=== PATIENT | male | born 1950 | race Caucasian/White ===

== ENCOUNTER 2016-11-23 00:17 | Emergency (ER) | payer OTHER ==
[~2016-11-23] VITALS: Wt 85.7 kg
--- NOTE | ~2016-11-23 | EKG ---
[place], [place] ELECTROCARDIOGRAM REPORT NAME: BOB RUSSELL UNIT #: [id number] ROOM: DOCTOR: MADISON HART [facility],DARLEEN BIRTHDATE: [birth year] DOS: 11/23/2016 CONCLUSION: 1. Sinus tachycardia. 2. Borderline septal infarction. 3. Left anterior hemiblock and nonspecific ST changes. DARLEEN WALLACE MD CM:EKGRPT:ELECTROCARDIOGRAM REPORT [id number] DARLEEN WALLACE MD [facility]
[~2016-11-23 00:17] MED LIST: ASPIR 8181 MG PO; ASPIRIN81 M1 PO; BACTRIM DS 8001 TA1 PO; BLOOD PRESSURE PO; CIPRO500 MG PO; DARVOCET N 1001 TAB PO; DAYPRO600 M1 PO; IBU-8800 MG PO; KEFLEX500 MG PO; KENALOG0.5% TP; LEVOTHYROXIN0.025 MG PO; LEVOTHYROXINE0.1 MG PO; LISINOPRIL10 M1 PO; LISINOPRIL20 MG PO; LOPRESSOR; LOPRESSOR50 M1 PO; LOVASTATIN20 MG PO; METFORMIN1000 MG PO; METFORMIN750 MG PO; METOPROLOL SR50 MG PO; MULTIVITAMIN PO; PLAVIX75 MG PO; PREDNICOT20 MG PO; SEPTRA DS 800 M1 TAB PO; VIBRAMYCIN100 MG PO; [UNRECOGNIZED DRUG - REMARK]
[2016-11-23] MEDS ORDERED: CLOPIDOGREL75 MG PO (00:21)
[2016-11-23] MEDS ORDERED: LEVOTHYROXINE0.05 MG PO (00:22)
[2016-11-23] MEDS ORDERED: CARVEDILOL12.5 MG PO (00:24)
[2016-11-23] MEDS ORDERED: ALDACTONE25 M1 PO (00:24)
[2016-11-23] MEDS ORDERED: ARMOUR THYROID60 MG PO (00:25)
[2016-11-23] MEDS ORDERED: AMARYL2 MG PO (00:25)
[2016-11-23 01:09] LABS: BASO % 0.8 % (0.0-1.0); HEMATOCRIT 29.8 % (42.0-52.0); HEMOGLOBIN 11.1 g/dl (14.0-18.0); LYMPH # 0.4 10*3/uL (1.3-4.4); LYMPH % 16.8 % (27.0-41.0); MEAN CELL VOLUME 89.8 fl (80.0-94.0); MEAN CORPUSCULAR HGB 33.4 pg (27.0-31.0); MEAN PLATELET VOLUME 9.9 fl (9.6-12.3); MONO # 0.3 10*3/uL (0.1-1.0); MONO % 12.8 % (3.0-9.0); NEUT # 1.7 10*3/uL (2.3-7.9); NEUT % 69.2 % (47.0-73.0); PLATELET COUNT AUTOMATED 135 10*3/uL (130-400); RED BLOOD COUNT 3.32 10*6/uL (4.50-5.90); RED CELL DISTRI WIDTH 13.1 % (0-14.5); WHITE BLOOD COUNT 2.5 10*3/uL (4.8-10.8)
[2016-11-23 01:23] LABS: POTASSIUM 4.4 mmol/L (3.5-5.1); TROPONIN I 0.017 ng/ml (<0.045)
[2016-11-23 01:26] LABS: MEAN CORPUSCULAR HGB CONC 37.2 g/dl (33.0-37.0)
[2016-11-23 02:52] LABS: BILIRUBIN NEGATIVE (NEGATIVE); BLOOD 1+ (NEGATIVE); CLARITY CLEAR (CLEAR); COLOR YELLOW (YELLOW); GLUCOSE TRACE (NEGATIVE); KETONE NEGATIVE (NEGATIVE); LEUKO ESTERASE NEGATIVE (NEGATIVE); NITRITE NEGATIVE (NEGATIVE); PH 5.5 (5.0-9.0); PROTEIN 1+ (NEGATIVE); SPECIFIC GRAVITY 1.025 (1.005-1.030)
[2016-11-23 02:59] LABS: BACTERIA 2+; EPITHELIAL CELLS 0-2; URINE REFLEX COMMENT YES (NO); WBC 0-2 wbc/hpf (0-5)
== END 2016-11-23 05:17 | disposition home or self-care (01) ==
LOC: ED 00:17
PROVIDERS: Student in an Organized Health Care Education/Training Program
DX: D64.9 Anemia, unspecified (principal); K40.90 Unilateral inguinal hernia, without obstruction or gangrene, not specified as recurrent; I10 Essential (primary) hypertension; E11.9 Type 2 diabetes mellitus without complications; I25.10 Atherosclerotic heart disease of native coronary artery without angina pectoris; I50.9 Heart failure, unspecified; E78.5 Hyperlipidemia, unspecified; I25.2 Old myocardial infarction; Z79.899 Other long term (current) drug therapy

== ENCOUNTER 2016-12-07 17:36 | Emergency (ER) | payer OTHER ==
[~2016-12-07] VITALS: Wt 83.0 kg
[~2016-12-07 17:36] MED LIST changes: +ALDACTONE25 M1 PO; +AMARYL2 MG PO; +ARMOUR THYROID60 MG PO; +CARVEDILOL12.5 MG PO; +CLOPIDOGREL75 MG PO; +LEVOTHYROXINE0.05 MG PO
[2016-12-07 18:09] LABS: BASO % 0.5 % (0.0-1.0); EOS # 0.1 10*3/uL (0.0-0.4); EOS % 1.1 % (1.0-4.0); HEMATOCRIT 28.3 % (42.0-52.0); HEMOGLOBIN 9.8 g/dl (14.0-18.0); LYMPH # 0.5 10*3/uL (1.3-4.4); LYMPH % 8.3 % (27.0-41.0); MEAN CELL VOLUME 92.8 fl (80.0-94.0); MEAN CORPUSCULAR HGB 32.1 pg (27.0-31.0); MEAN CORPUSCULAR HGB CONC 34.6 g/dl (33.0-37.0); MEAN PLATELET VOLUME 9.3 fl (9.6-12.3); MONO # 0.4 10*3/uL (0.1-1.0); MONO % 5.6 % (3.0-9.0); NEUT # 5.4 10*3/uL (2.3-7.9); PLATELET COUNT AUTOMATED 305 10*3/uL (130-400); RED BLOOD COUNT 3.05 10*6/uL (4.50-5.90); RED CELL DISTRI WIDTH 13.1 % (0-14.5); WHITE BLOOD COUNT 6.4 10*3/uL (4.8-10.8)
[2016-12-07 18:24] LABS: ALBUMIN 3.1 gm/dl (3.1-4.5); BILIRUBIN, TOTAL 0.5 mg/dl (0.2-1.0); POTASSIUM 5.6 mmol/L (3.5-5.1); TOTAL PROTEIN 7.4 gm/dL (6.4-8.2)
== END 2016-12-07 19:13 | disposition home or self-care (01) ==
LOC: ED 17:36
PROVIDERS: Registered Nurse
DX: K92.2 Gastrointestinal hemorrhage, unspecified (principal); D64.9 Anemia, unspecified; E87.5 Hyperkalemia; K40.90 Unilateral inguinal hernia, without obstruction or gangrene, not specified as recurrent; R06.02 Shortness of breath; Z79.899 Other long term (current) drug therapy; Z87.891 Personal history of nicotine dependence

== ENCOUNTER → 2016-12-17 | Day surgery (SDC) | payer OTHER ==
[~2016-12-17] MED LIST changes: +CYCLOBENZAPRINE5 M3 PO; +NORCO 5-325 TA1 EACH PO; +Orphenadrine C100 MG PO; +ULTRAM50 MG PO
[2016-12-17 10:08] LABS: BASO % 0.4 % (0.0-1.0); EOS # 0.1 10*3/uL (0.0-0.4); EOS % 2.9 % (1.0-4.0); HEMATOCRIT 29.7 % (42.0-52.0); HEMOGLOBIN 10.1 g/dl (14.0-18.0); LYMPH # 0.6 10*3/uL (1.3-4.4); LYMPH % 12.6 % (27.0-41.0); MEAN CELL VOLUME 93.7 fl (80.0-94.0); MEAN CORPUSCULAR HGB 31.9 pg (27.0-31.0); MEAN PLATELET VOLUME 9.6 fl (9.6-12.3); MONO # 0.2 10*3/uL (0.1-1.0); MONO % 5.3 % (3.0-9.0); NEUT # 3.5 10*3/uL (2.3-7.9); NEUT % 77.9 % (47.0-73.0); PLATELET COUNT AUTOMATED 291 10*3/uL (130-400); RED BLOOD COUNT 3.17 10*6/uL (4.50-5.90); RED CELL DISTRI WIDTH 14.1 % (0-14.5); WHITE BLOOD COUNT 4.5 10*3/uL (4.8-10.8)
[2016-12-17 10:09] LABS: BILIRUBIN NEGATIVE (NEGATIVE); BLOOD NEGATIVE (NEGATIVE); CLARITY CLEAR (CLEAR); COLOR YELLOW (YELLOW); GLUCOSE NEGATIVE (NEGATIVE); KETONE NEGATIVE (NEGATIVE); LEUKO ESTERASE NEGATIVE (NEGATIVE); NITRITE NEGATIVE (NEGATIVE); PROTEIN 1+ (NEGATIVE)
[2016-12-17 10:36] LABS: POTASSIUM 4.9 mmol/L (3.5-5.1)
[2016-12-17 10:37] LABS: PROTHROMBIN TIME 10.7 SECONDS (9.0-12.4)
[2016-12-17 10:53] LABS: EPITHELIAL CELLS 0-2
[2016-12-21 10:06] VITALS: BP 170/83
[2016-12-21 10:53] VITALS: BP 115/74
[2016-12-21 11:07] VITALS: BP 120/76
[2016-12-21 11:23] VITALS: BP 130/82
== END | disposition home or self-care (01) ==
LOC: CANPRESDC → SDC 08:00
PROVIDERS: Surgery
DX: K29.50 Unspecified chronic gastritis without bleeding (principal); K44.9 Diaphragmatic hernia without obstruction or gangrene; K92.2 Gastrointestinal hemorrhage, unspecified; Z79.899 Other long term (current) drug therapy; Z79.84 Long term (current) use of oral hypoglycemic drugs; E11.9 Type 2 diabetes mellitus without complications; E03.9 Hypothyroidism, unspecified; I25.2 Old myocardial infarction; Z95.9 Presence of cardiac and vascular implant and graft, unspecified; Z82.49 Family history of ischemic heart disease and other diseases of the circulatory system; Z80.42 Family history of malignant neoplasm of prostate; Z79.82 Long term (current) use of aspirin; I11.0 Hypertensive heart disease with heart failure; I50.9 Heart failure, unspecified; E78.00 Pure hypercholesterolemia, unspecified; Z87.891 Personal history of nicotine dependence

== ENCOUNTER 2016-12-26 03:43 | Inpatient (IN) | payer OTHER ==
[~2016-12-26] VITALS: Ht 175.2 cm; Wt 83.2 kg
[~2016-12-26 03:43] MED LIST changes: -CYCLOBENZAPRINE5 M3 PO; -NORCO 5-325 TA1 EACH PO; -Orphenadrine C100 MG PO; -ULTRAM50 MG PO
[2016-12-26 03:46] VITALS: BP 160/95
[2016-12-26 04:23] LABS: BASO % 0.7 % (0.0-1.0); EOS # 0.1 10*3/uL (0.0-0.4); EOS % 3.2 % (1.0-4.0); HEMATOCRIT 26.5 % (42.0-52.0); HEMOGLOBIN 9.1 g/dl (14.0-18.0); LYMPH # 0.7 10*3/uL (1.3-4.4); MEAN CELL VOLUME 93.3 fl (80.0-94.0); MEAN CORPUSCULAR HGB CONC 34.3 g/dl (33.0-37.0); MONO # 0.3 10*3/uL (0.1-1.0); MONO % 8.3 % (3.0-9.0); NEUT # 2.9 10*3/uL (2.3-7.9); NEUT % 69.3 % (47.0-73.0); PLATELET COUNT AUTOMATED 230 10*3/uL (130-400); RED BLOOD COUNT 2.84 10*6/uL (4.50-5.90); RED CELL DISTRI WIDTH 14.9 % (0-14.5); WHITE BLOOD COUNT 4.1 10*3/uL (4.8-10.8)
[2016-12-26 04:27] LABS: BILIRUBIN NEGATIVE (NEGATIVE); BLOOD NEGATIVE (NEGATIVE); CLARITY CLEAR (CLEAR); COLOR YELLOW (YELLOW); GLUCOSE NEGATIVE (NEGATIVE); KETONE NEGATIVE (NEGATIVE); LEUKO ESTERASE NEGATIVE (NEGATIVE); NITRITE NEGATIVE (NEGATIVE); PROTEIN NEGATIVE (NEGATIVE); UROBILINOGEN 0.2 E.U./dl (0.2-1.0)
[2016-12-26 04:42] LABS: ALBUMIN 3.1 gm/dl (3.1-4.5); ALKALINE PHOSPHATASE 56 U/L (45-117); BILIRUBIN, DIRECT < 0.1 mg/dL (0.0-0.2); BILIRUBIN, TOTAL 0.3 mg/dl (0.2-1.0); BUN 23 mg/dl (7-24); CARBON DIOXIDE 24 mmol/L (21-32); CHLORIDE 104 mmol/L (98-107); EST GLOM FILT AFRICAN AMERICAN > 60 ml/min; GLUCOSE 129 mg/dL (65-99); POTASSIUM 4.3 mmol/L (3.5-5.1); SGOT/AST 20 IU/L (3-35); SGPT/ALT 25 U/L (12-78); SODIUM 138 mmol/L (136-145); TOTAL PROTEIN 6.8 gm/dL (6.4-8.2)
[2016-12-26 04:43] LABS: TROPONIN I < 0.015 ng/ml (<0.045)
[2016-12-26 04:45] LABS: BACTERIA TRACE; EPITHELIAL CELLS 0-2; RBC 0-2 rbc/hpf (0-2); URINE REFLEX COMMENT NO (NO); WBC 0-2 wbc/hpf (0-5)
[2016-12-26 05:36] VITALS: BP 153/92
[2016-12-26 06:30] VITALS: BP 148/81
[2016-12-26 08:00] VITALS: BP 155/82
[2016-12-26 12:00] VITALS: BP 136/72
[2016-12-26] MEDS ORDERED: NORCO 5-325 TA1 EACH PO (12:30)
[2016-12-26] MEDS ORDERED: CYCLOBENZAPRINE5 M3 PO (12:30)
== END 2016-12-26 13:59 | disposition home or self-care (01) | DRG 552 ==
LOC: ED 03:43 → EDHOLD 05:55 → 5E 06:09
PROVIDERS: Emergency Medicine
DX: M54.9 Dorsalgia, unspecified (principal); I13.0 Hypertensive heart and chronic kidney disease with heart failure and stage 1 through stage 4 chronic kidney disease, or unspecified chronic kidney disease; E11.22 Type 2 diabetes mellitus with diabetic chronic kidney disease; R65.10 Systemic inflammatory response syndrome (SIRS) of non-infectious origin without acute organ dysfunction; I50.22 Chronic systolic (congestive) heart failure; I25.10 Atherosclerotic heart disease of native coronary artery without angina pectoris; I25.2 Old myocardial infarction; L40.9 Psoriasis, unspecified; Z95.5 Presence of coronary angioplasty implant and graft; Z82.49 Family history of ischemic heart disease and other diseases of the circulatory system; Z83.3 Family history of diabetes mellitus; N18.3 Chronic kidney disease, stage 3 (moderate); Z87.891 Personal history of nicotine dependence; D72.810 Lymphocytopenia; E11.65 Type 2 diabetes mellitus with hyperglycemia; E78.2 Mixed hyperlipidemia; K57.30 Diverticulosis of large intestine without perforation or abscess without bleeding; Z79.84 Long term (current) use of oral hypoglycemic drugs; Z79.899 Other long term (current) drug therapy; D63.1 Anemia in chronic kidney disease

== ENCOUNTER 2016-12-31 04:36 | Emergency (ER) | payer OTHER ==
[~2016-12-31] VITALS: Ht 175.2 cm; Wt 83.0 kg
[~2016-12-31 04:36] MED LIST changes: +CYCLOBENZAPRINE5 M3 PO; +NORCO 5-325 TA1 EACH PO
[2016-12-31 05:32] LABS: BASO % 0.7 % (0.0-1.0); EOS # 0.1 10*3/uL (0.0-0.4); EOS % 2.4 % (1.0-4.0); HEMATOCRIT 28.7 % (42.0-52.0); LYMPH # 0.5 10*3/uL (1.3-4.4); LYMPH % 11.8 % (27.0-41.0); MEAN CORPUSCULAR HGB 32.1 pg (27.0-31.0); MEAN CORPUSCULAR HGB CONC 34.8 g/dl (33.0-37.0); MEAN PLATELET VOLUME 9.2 fl (9.6-12.3); MONO # 0.4 10*3/uL (0.1-1.0); MONO % 8.4 % (3.0-9.0); NEUT # 3.2 10*3/uL (2.3-7.9); NEUT % 76.2 % (47.0-73.0); PLATELET COUNT AUTOMATED 235 10*3/uL (130-400); RED BLOOD COUNT 3.12 10*6/uL (4.50-5.90); RED CELL DISTRI WIDTH 14.8 % (0-14.5); WHITE BLOOD COUNT 4.2 10*3/uL (4.8-10.8)
[2016-12-31 05:54] LABS: ALBUMIN 3.4 gm/dl (3.1-4.5); ALKALINE PHOSPHATASE 66 U/L (45-117); BILIRUBIN, TOTAL 0.4 mg/dl (0.2-1.0); BUN 22 mg/dl (7-24); C-REACTIVE PROTEIN 1.65 MG/DL (0-0.3); CARBON DIOXIDE 26 mmol/L (21-32); CHLORIDE 99 mmol/L (98-107); EST GLOM FILT AFRICAN AMERICAN 59 ml/min; GLUCOSE 186 mg/dL (65-99); MAGNESIUM 1.6 mg/dL (1.5-2.1); POTASSIUM 4.5 mmol/L (3.5-5.1); SGOT/AST 14 IU/L (3-35); SGPT/ALT 22 U/L (12-78); SODIUM 134 mmol/L (136-145); TOTAL PROTEIN 7.1 gm/dL (6.4-8.2); TROPONIN I < 0.015 ng/ml (<0.045)
[2016-12-31 06:51] LABS: BILIRUBIN NEGATIVE (NEGATIVE); BLOOD NEGATIVE (NEGATIVE); CLARITY CLEAR (CLEAR); COLOR YELLOW (YELLOW); GLUCOSE NEGATIVE (NEGATIVE); KETONE NEGATIVE (NEGATIVE); LEUKO ESTERASE NEGATIVE (NEGATIVE); NITRITE NEGATIVE (NEGATIVE); PROTEIN NEGATIVE (NEGATIVE); SPECIFIC GRAVITY <= 1.005 (1.005-1.030); UROBILINOGEN 0.2 E.U./dl (0.2-1.0)
[2016-12-31] MEDS ORDERED: Orphenadrine C100 MG PO (06:55)
[2016-12-31] MEDS ORDERED: ULTRAM50 MG PO (06:55)
[2016-12-31 06:58] LABS: URINE REFLEX COMMENT NO (NO)
== END 2016-12-31 07:51 | disposition home or self-care (01) ==
LOC: ED 04:36
PROVIDERS: Emergency Medicine Emergency Medical Services
DX: M54.16 Radiculopathy, lumbar region (principal); M51.86 Other intervertebral disc disorders, lumbar region; I25.10 Atherosclerotic heart disease of native coronary artery without angina pectoris; E11.22 Type 2 diabetes mellitus with diabetic chronic kidney disease; I13.0 Hypertensive heart and chronic kidney disease with heart failure and stage 1 through stage 4 chronic kidney disease, or unspecified chronic kidney disease; N18.3 Chronic kidney disease, stage 3 (moderate); I25.2 Old myocardial infarction; E78.5 Hyperlipidemia, unspecified; Z87.891 Personal history of nicotine dependence; Z79.899 Other long term (current) drug therapy

== ENCOUNTER → 2017-02-11 | Outpatient (CLI) | payer OTHER ==
[~2017-02-11] MED LIST changes: +Orphenadrine C100 MG PO; +ULTRAM50 MG PO
[2017-02-11 09:04] LABS: BASO # 0.1 10*3/uL (0.0-0.1); BASO % 0.9 % (0.0-1.0); EOS # 0.2 10*3/uL (0.0-0.4); EOS % 3.1 % (1.0-4.0); HEMATOCRIT 32.7 % (42.0-52.0); HEMOGLOBIN 11.8 g/dl (14.0-18.0); LYMPH # 0.8 10*3/uL (1.3-4.4); LYMPH % 13.5 % (27.0-41.0); MEAN CELL VOLUME 89.8 fl (80.0-94.0); MEAN CORPUSCULAR HGB 32.4 pg (27.0-31.0); MEAN CORPUSCULAR HGB CONC 36.1 g/dl (33.0-37.0); MEAN PLATELET VOLUME 9.7 fl (9.6-12.3); MONO # 0.4 10*3/uL (0.1-1.0); MONO % 6.1 % (3.0-9.0); NEUT # 4.4 10*3/uL (2.3-7.9); NEUT % 75.9 % (47.0-73.0); PLATELET COUNT AUTOMATED 215 10*3/uL (130-400); RED BLOOD COUNT 3.64 10*6/uL (4.50-5.90); RED CELL DISTRI WIDTH 13.7 % (0-14.5); WHITE BLOOD COUNT 5.8 10*3/uL (4.8-10.8)
== END | disposition home or self-care (01) ==
LOC: LAB 08:39
PROVIDERS: Family Medicine
DX: D64.9 Anemia, unspecified (principal)

== ENCOUNTER 2017-02-21 23:18 | Inpatient (IN) | payer OTHER ==
[~2017-02-21] VITALS: Ht 175.2 cm; Wt 75.6 kg
[2017-02-21 23:18] VITALS: BP 136/82
[2017-02-21 23:43] LABS: BASO % 0.6 % (0.0-1.0); EOS # 0.2 10*3/uL (0.0-0.4); EOS % 3.3 % (1.0-4.0); HEMOGLOBIN 11.5 g/dl (14.0-18.0); LYMPH # 0.8 10*3/uL (1.3-4.4); LYMPH % 14.7 % (27.0-41.0); MEAN CELL VOLUME 89.9 fl (80.0-94.0); MEAN CORPUSCULAR HGB 32.3 pg (27.0-31.0); MEAN CORPUSCULAR HGB CONC 35.9 g/dl (33.0-37.0); MEAN PLATELET VOLUME 9.9 fl (9.6-12.3); MONO # 0.3 10*3/uL (0.1-1.0); MONO % 5.5 % (3.0-9.0); NEUT # 3.9 10*3/uL (2.3-7.9); NEUT % 75.7 % (47.0-73.0); PLATELET COUNT AUTOMATED 214 10*3/uL (130-400); RED BLOOD COUNT 3.56 10*6/uL (4.50-5.90); WHITE BLOOD COUNT 5.1 10*3/uL (4.8-10.8)
[2017-02-21 23:50] LABS: BILIRUBIN NEGATIVE (NEGATIVE); BLOOD NEGATIVE (NEGATIVE); CLARITY CLEAR (CLEAR); COLOR YELLOW (YELLOW); GLUCOSE 2+ (NEGATIVE); KETONE NEGATIVE (NEGATIVE); LEUKO ESTERASE NEGATIVE (NEGATIVE); NITRITE NEGATIVE (NEGATIVE); SPECIFIC GRAVITY <= 1.005 (1.005-1.030)
[2017-02-21 23:58] LABS: ALBUMIN 3.6 gm/dl (3.1-4.5); ALKALINE PHOSPHATASE 78 U/L (45-117); BUN 20 mg/dl (7-24); CHLORIDE 99 mmol/L (98-107); CREATININE 1.18 mg/dL (0.70-1.30); SGOT/AST 11 IU/L (3-35); SGPT/ALT 14 U/L (12-78); SODIUM 131 mmol/L (136-145); TOTAL PROTEIN 7.5 gm/dL (6.4-8.2)
[2017-02-22] VITALS (7 sets, daily range): BP systolic 133–157; BP diastolic 76–87
[2017-02-22 00:05] LABS: WBC 0-2 wbc/hpf (0-5)
--- NOTE | 2017-02-22 01:30 | NUR ---
A 66, admitted to 5E, under the services of KATHLEEN Thomason DO with a diagnosis of ABDOMINAL PAIN/ABDOMINAL MASS. Chief complaint is ABDOMINAL PAIN. Patient arrived via ambulatory from ER. Monitor applied. Initial assessment completed. Vital signs taken and recorded. KATHLEEN THOMASON DO notified of admission to the unit. Orders received. See assessment for past medical history, medications and allergies. Patient and/or family oriented to unit. visitation policy reviewed. Clothing/patient valuable form completed. AMANUEL WYNN L
--- NOTE | 2017-02-22 03:58 | NUR ---
PT RESTING IN BED WITH EYES CLOSED RESPS EASY AND NONLABORED AT THIS TIME, CALL LIGHT WITH IN REACH
[2017-02-22 06:06] LABS: FREE T4 1.41 ng/dl (0.76-1.46)
[2017-02-22 06:10] LABS: THYROID STIM HORMONE (HS) 0.092 uIU/ml (0.358-4.75)
[2017-02-22 06:19] LABS: BASO % 0.8 % (0.0-1.0); EOS # 0.2 10*3/uL (0.0-0.4); EOS % 3.8 % (1.0-4.0); HEMATOCRIT 29.3 % (42.0-52.0); HEMOGLOBIN 10.2 g/dl (14.0-18.0); LYMPH # 0.7 10*3/uL (1.3-4.4); LYMPH % 18.5 % (27.0-41.0); MEAN CELL VOLUME 89.9 fl (80.0-94.0); MEAN CORPUSCULAR HGB 31.3 pg (27.0-31.0); MEAN CORPUSCULAR HGB CONC 34.8 g/dl (33.0-37.0); MEAN PLATELET VOLUME 10.4 fl (9.6-12.3); MONO # 0.2 10*3/uL (0.1-1.0); MONO % 5.3 % (3.0-9.0); NEUT # 2.8 10*3/uL (2.3-7.9); NEUT % 71.1 % (47.0-73.0); PLATELET COUNT AUTOMATED 194 10*3/uL (130-400); RED BLOOD COUNT 3.26 10*6/uL (4.50-5.90); RED CELL DISTRI WIDTH 14.1 % (0-14.5); WHITE BLOOD COUNT 3.9 10*3/uL (4.8-10.8)
[2017-02-22 06:28] LABS: ACT PARTIAL THROMBO TIME 22.9 SECONDS (20.8-31.5); INTERNATIONAL NORM RATIO 1.1 (2.0-3.5)
--- NOTE | 2017-02-22 09:00 | NUR ---
Medical Record Retrieval Specialist in to talk to patient. Patient states lives at home with and family. There are few steps in the home. Physician: atiya steiner Pharmacy: [facility] [place] [facility]: none Patient's level of ADLs: INDEPENDENT Patient has working utilities: all working DME: none Follow-up physician's appointment after d/c: will be made by hospitalist nurse director upon discharge Does patient want to access PORTAL?: no Discharge plan discussed with patient, patient lives at home with and family, he states he is independent in adls and ambulation, drives, patient states he will be going back home and denies any home needs. PRASHANTH LEZAMA
[2017-02-22] MEDS ORDERED: COREG12.5 M1 PO (11:04)
[2017-02-22] MEDS ORDERED: ASPIRIN CHEWABL81 MG PO (11:05)
--- NOTE | 2017-02-22 19:48 | NUR ---
DR. RIZZO CALLED AND NOTIFIED OF PATIENT CONSULT. THE STATED HE WOULD BE IN THE MORNING TO SEE THE PATIENT. HE ALSO ASKED IF THE PATIENT WAS ON ANY BLOOD THINNERS AND IF HE HAD A DIET. I STATED THE PATIENT IS ON PLAVIX FOR STENT HX X3 AND THAT HE IS ON A 1800 SOM DIET. THE STATED HE WAS GOING TO LOOK AT THE PATIENT HX AND DECIDE IF ANYTHING IS NEEDED NOW. NO OTHER CONCERNS FROM THE .
[2017-02-23] VITALS: BP 107/91; BP 140/83
[2017-02-23 04:00] VITALS: BP 107/91
[2017-02-23 07:15] LABS: BASO % 0.7 % (0.0-1.0); EOS # 0.2 10*3/uL (0.0-0.4); EOS % 3.1 % (1.0-4.0); HEMOGLOBIN 10.7 g/dl (14.0-18.0); LYMPH # 0.6 10*3/uL (1.3-4.4); LYMPH % 9.8 % (27.0-41.0); MEAN CORPUSCULAR HGB 31.8 pg (27.0-31.0); MEAN CORPUSCULAR HGB CONC 35.7 g/dl (33.0-37.0); MEAN PLATELET VOLUME 10.3 fl (9.6-12.3); MONO # 0.3 10*3/uL (0.1-1.0); MONO % 5.3 % (3.0-9.0); NEUT # 4.7 10*3/uL (2.3-7.9); NEUT % 80.8 % (47.0-73.0); PLATELET COUNT AUTOMATED 199 10*3/uL (130-400); RED BLOOD COUNT 3.37 10*6/uL (4.50-5.90); WHITE BLOOD COUNT 5.8 10*3/uL (4.8-10.8)
[2017-02-23 07:53] LABS: ALBUMIN 3.4 gm/dl (3.1-4.5); ALKALINE PHOSPHATASE 72 U/L (45-117); BUN 25 mg/dl (7-24); CHLORIDE 97 mmol/L (98-107); CREATININE 1.23 mg/dL (0.70-1.30); MAGNESIUM 1.5 mg/dL (1.5-2.1); PHOSPHOROUS 3.4 mg/dL (2.5-4.9); POTASSIUM 4.1 mmol/L (3.5-5.1); SGOT/AST 12 IU/L (3-35); SGPT/ALT 15 U/L (12-78); SODIUM 131 mmol/L (136-145); TOTAL PROTEIN 7.1 gm/dL (6.4-8.2)
[2017-02-23 08:00] VITALS: BP 152/98
--- NOTE | 2017-02-23 08:55 | NUR ---
DR. RIZZO CLEARED THE PATIENT FOR DISCHARGE.
--- NOTE | 2017-02-23 09:00 | NUR ---
case management visits with patient, patient denies any home needs
--- NOTE | 2017-02-23 11:53 | NUR ---
Discharge instructions reviewed with patient/family. Patient receptive and verbalizes understanding. Follow-up care arranged. Written instructions given to patient/family. MACIE AGUILAR
== END 2017-02-23 11:53 | disposition home or self-care (01) | DRG 394 ==
LOC: ED 23:18 → EDHOLD 02-22 00:54 → 5E 02-22 00:54
PROVIDERS: Hospitalist; Internal Medicine; Student in an Organized Health Care Education/Training Program; ADMIT Internal Medicine
DX: K66.1 Hemoperitoneum (principal); I13.0 Hypertensive heart and chronic kidney disease with heart failure and stage 1 through stage 4 chronic kidney disease, or unspecified chronic kidney disease; I50.42 Chronic combined systolic (congestive) and diastolic (congestive) heart failure; E11.22 Type 2 diabetes mellitus with diabetic chronic kidney disease; E87.1 Hypo-osmolality and hyponatremia; R19.03 Right lower quadrant abdominal swelling, mass and lump; E78.2 Mixed hyperlipidemia; E11.65 Type 2 diabetes mellitus with hyperglycemia; I25.10 Atherosclerotic heart disease of native coronary artery without angina pectoris; N18.3 Chronic kidney disease, stage 3 (moderate); D63.1 Anemia in chronic kidney disease; E03.9 Hypothyroidism, unspecified; D72.810 Lymphocytopenia; R63.4 Abnormal weight loss; E55.9 Vitamin D deficiency, unspecified; K57.90 Diverticulosis of intestine, part unspecified, without perforation or abscess without bleeding; L40.9 Psoriasis, unspecified; I25.2 Old myocardial infarction; Z98.61 Coronary angioplasty status; Z87.891 Personal history of nicotine dependence; Z82.49 Family history of ischemic heart disease and other diseases of the circulatory system; Z83.3 Family history of diabetes mellitus; Z79.82 Long term (current) use of aspirin; Z79.84 Long term (current) use of oral hypoglycemic drugs; Z79.899 Other long term (current) drug therapy

== ENCOUNTER → 2017-03-18 | Outpatient (CLI) | payer OTHER ==
[~2017-03-18] MED LIST changes: +ASPIRIN CHEWABL81 MG PO; +COREG12.5 M1 PO
[2017-03-18 08:15] LABS: BASO % 0.9 % (0.0-1.0); EOS # 0.2 10*3/uL (0.0-0.4); EOS % 4.4 % (1.0-4.0); HEMATOCRIT 30.7 % (42.0-52.0); HEMOGLOBIN 10.7 g/dl (14.0-18.0); LYMPH # 0.7 10*3/uL (1.3-4.4); LYMPH % 16.2 % (27.0-41.0); MEAN CELL VOLUME 91.1 fl (80.0-94.0); MEAN CORPUSCULAR HGB 31.8 pg (27.0-31.0); MEAN CORPUSCULAR HGB CONC 34.9 g/dl (33.0-37.0); MEAN PLATELET VOLUME 9.1 fl (9.6-12.3); MONO # 0.3 10*3/uL (0.1-1.0); NEUT # 3.1 10*3/uL (2.3-7.9); PLATELET COUNT AUTOMATED 226 10*3/uL (130-400); RED BLOOD COUNT 3.37 10*6/uL (4.50-5.90); RED CELL DISTRI WIDTH 13.9 % (0-14.5); WHITE BLOOD COUNT 4.3 10*3/uL (4.8-10.8)
[2017-03-18 08:45] LABS: ALBUMIN 3.4 gm/dl (3.1-4.5); ALKALINE PHOSPHATASE 75 U/L (45-117); BILIRUBIN, DIRECT < 0.1 mg/dL (0.0-0.2); BUN 18 mg/dl (7-24); CHLORIDE 102 mmol/L (98-107); CREATININE 1.29 mg/dL (0.70-1.30); POTASSIUM 4.7 mmol/L (3.5-5.1); SGOT/AST 13 IU/L (3-35); SGPT/ALT 17 U/L (12-78); SODIUM 137 mmol/L (136-145); TOTAL PROTEIN 7.5 gm/dL (6.4-8.2)
== END | disposition home or self-care (01) ==
LOC: LAB 07:58
PROVIDERS: Family Medicine
DX: D64.9 Anemia, unspecified (principal); N28.9 Disorder of kidney and ureter, unspecified

== ENCOUNTER → 2017-04-13 | Outpatient (CLI) | payer OTHER ==
[2017-04-13 12:56] LABS: BASO % 0.9 % (0.0-1.0); EOS # 0.1 10*3/uL (0.0-0.4); EOS % 3.1 % (1.0-4.0); HEMOGLOBIN 11.2 g/dl (14.0-18.0); LYMPH # 0.9 10*3/uL (1.3-4.4); LYMPH % 20.3 % (27.0-41.0); MEAN CELL VOLUME 90.1 fl (80.0-94.0); MEAN CORPUSCULAR HGB 31.5 pg (27.0-31.0); MEAN PLATELET VOLUME 9.4 fl (9.6-12.3); MONO # 0.3 10*3/uL (0.1-1.0); MONO % 6.4 % (3.0-9.0); NEUT # 2.9 10*3/uL (2.3-7.9); NEUT % 68.6 % (47.0-73.0); PLATELET COUNT AUTOMATED 263 10*3/uL (130-400); RED BLOOD COUNT 3.55 10*6/uL (4.50-5.90); WHITE BLOOD COUNT 4.2 10*3/uL (4.8-10.8)
[2017-04-13 13:05] LABS: BUN 23 mg/dl (7-24); CHLORIDE 104 mmol/L (98-107); CREATININE 1.28 mg/dL (0.70-1.30); SODIUM 136 mmol/L (136-145)
== END | disposition home or self-care (01) ==
LOC: LAB 12:11
PROVIDERS: Family Medicine
DX: E11.9 Type 2 diabetes mellitus without complications (principal); D64.9 Anemia, unspecified; N28.9 Disorder of kidney and ureter, unspecified

== ENCOUNTER → 2017-05-04 | Outpatient (CLI) | payer OTHER ==
[2017-05-04 09:24] LABS: BASO % 0.7 % (0.0-1.0); EOS # 0.1 10*3/uL (0.0-0.4); EOS % 2.9 % (1.0-4.0); HEMATOCRIT 31.5 % (42.0-52.0); LYMPH # 0.8 10*3/uL (1.3-4.4); LYMPH % 16.9 % (27.0-41.0); MEAN CELL VOLUME 93.2 fl (80.0-94.0); MEAN CORPUSCULAR HGB 32.5 pg (27.0-31.0); MEAN CORPUSCULAR HGB CONC 34.9 g/dl (33.0-37.0); MEAN PLATELET VOLUME 9.8 fl (9.6-12.3); MONO # 0.4 10*3/uL (0.1-1.0); MONO % 9.9 % (3.0-9.0); NEUT # 3.1 10*3/uL (2.3-7.9); NEUT % 69.1 % (47.0-73.0); PLATELET COUNT AUTOMATED 220 10*3/uL (130-400); RED BLOOD COUNT 3.38 10*6/uL (4.50-5.90); WHITE BLOOD COUNT 4.4 10*3/uL (4.8-10.8)
== END | disposition home or self-care (01) ==
LOC: LAB 08:34
PROVIDERS: Family Medicine
DX: D64.9 Anemia, unspecified (principal)

== ENCOUNTER → 2017-08-10 | Outpatient (CLI) | payer OTHER | END | disposition home or self-care (01) | LOC: RAD 13:15 | DX: M25.561 Pain in right knee (principal) ==

== ENCOUNTER → 2017-09-16 | Outpatient (CLI) | payer OTHER ==
[2017-09-16 10:46] LABS: BASO # 0.1 10*3/uL (0.0-0.1); BASO % 1.1 % (0.0-1.0); EOS # 0.2 10*3/uL (0.0-0.4); EOS % 3.9 % (1.0-4.0); HEMATOCRIT 33.1 % (42.0-52.0); HEMOGLOBIN 11.5 g/dl (14.0-18.0); LYMPH # 0.8 10*3/uL (1.3-4.4); LYMPH % 16.3 % (27.0-41.0); MEAN CELL VOLUME 93.5 fl (80.0-94.0); MEAN CORPUSCULAR HGB 32.5 pg (27.0-31.0); MEAN CORPUSCULAR HGB CONC 34.7 g/dl (33.0-37.0); MEAN PLATELET VOLUME 9.4 fl (9.6-12.3); MONO # 0.4 10*3/uL (0.1-1.0); MONO % 8.2 % (3.0-9.0); NEUT # 3.2 10*3/uL (2.3-7.9); NEUT % 69.8 % (47.0-73.0); PLATELET COUNT AUTOMATED 197 10*3/uL (130-400); RED BLOOD COUNT 3.54 10*6/uL (4.50-5.90); RED CELL DISTRI WIDTH 14.6 % (0-14.5); WHITE BLOOD COUNT 4.6 10*3/uL (4.8-10.8)
[2017-09-16 11:13] LABS: ALBUMIN 3.8 gm/dl (3.1-4.5); ALKALINE PHOSPHATASE 67 U/L (45-117); BILIRUBIN, DIRECT 0.1 mg/dL (0.0-0.2); BUN 25 mg/dl (7-24); CHLORIDE 104 mmol/L (98-107); POTASSIUM 5.1 mmol/L (3.5-5.1); SGOT/AST 17 IU/L (3-35); SGPT/ALT 25 U/L (12-78); SODIUM 137 mmol/L (136-145); TOTAL PROTEIN 7.5 gm/dL (6.4-8.2)
== END | disposition home or self-care (01) ==
LOC: LAB 10:22
PROVIDERS: Family Medicine
DX: I10 Essential (primary) hypertension (principal); E11.9 Type 2 diabetes mellitus without complications

== ENCOUNTER → 2017-10-05 | Outpatient (CLI) | payer OTHER | END | disposition home or self-care (01) | LOC: CARD 15:26 | DX: I25.5 Ischemic cardiomyopathy (principal) ==

== ENCOUNTER 2017-11-01 17:42 | Emergency (ER) | payer OTHER ==
[~2017-11-01] VITALS: Ht 175.2 cm; Wt 77.6 kg
[2017-11-01 18:17] LABS: BASO % 0.5 % (0.0-1.0); EOS # 0.1 10*3/uL (0.0-0.4); EOS % 1.5 % (1.0-4.0); HEMATOCRIT 32.5 % (42.0-52.0); HEMOGLOBIN 11.1 g/dl (14.0-18.0); LYMPH # 0.7 10*3/uL (1.3-4.4); LYMPH % 11.3 % (27.0-41.0); MEAN CELL VOLUME 91.5 fl (80.0-94.0); MEAN CORPUSCULAR HGB 31.3 pg (27.0-31.0); MEAN CORPUSCULAR HGB CONC 34.2 g/dl (33.0-37.0); MEAN PLATELET VOLUME 9.3 fl (9.6-12.3); MONO # 0.5 10*3/uL (0.1-1.0); MONO % 7.6 % (3.0-9.0); NEUT # 4.8 10*3/uL (2.3-7.9); NEUT % 78.8 % (47.0-73.0); PLATELET COUNT AUTOMATED 327 10*3/uL (130-400); RED BLOOD COUNT 3.55 10*6/uL (4.50-5.90); RED CELL DISTRI WIDTH 12.7 % (0-14.5)
[2017-11-01 18:29] LABS: ACT PARTIAL THROMBO TIME 25.9 SECONDS (20.8-31.5)
[2017-11-01 18:33] LABS: ALBUMIN 3.4 gm/dl (3.1-4.5); CREATININE 1.55 mg/dL (0.70-1.30); POTASSIUM 4.6 mmol/L (3.5-5.1); TOTAL PROTEIN 7.7 gm/dL (6.4-8.2)
[2017-11-01 21:56] LABS: BF LYMPHOCYTES 2 %; BF MACROPHAGES 3 %; BF NEUTROPHILS 95 %
[2017-11-01 21:58] LABS: BODY FLUID WBC 49075 /uL
== END 2017-11-01 21:16 | disposition home or self-care (01) ==
LOC: ED 17:42
PROVIDERS: Physician Assistant
DX: M25.461 Effusion, right knee (principal); M17.11 Unilateral primary osteoarthritis, right knee; Z79.82 Long term (current) use of aspirin; Z79.899 Other long term (current) drug therapy; Z87.891 Personal history of nicotine dependence

== ENCOUNTER → 2017-12-01 | Outpatient (CLI) | payer OTHER ==
[~2017-12-01] MED LIST changes: +ALDACTONE25 MG PO; +CARVEDILOL25 MG PO; +COREG25 MG PO; +DOXYCYCLINE MO100 M1 PO; +FUROSEMIDE40 MG PO; +GLUCOPHAGE500 M1 PO; +GLUCOPHAGE500 MG PO; +HYDRALAZINE10 MG PO; +IRON PO; +LATANOPROST2.5 ML OU; +LISINOPRIL5 MG PO; +MULTIZYME PO; +PROVENTIL HFA6.7 GM INH; +Synthroid,Lev100 MCG PO; +VITAMIN D31000 UNI1 PO; +[UNRECOGNIZED DRUG - OTHER] PO
[2017-12-01 11:48] LABS: BASO % 0.7 % (0.0-1.0); EOS # 0.2 10*3/uL (0.0-0.4); EOS % 3.3 % (1.0-4.0); HEMATOCRIT 32.8 % (42.0-52.0); HEMOGLOBIN 10.8 g/dl (14.0-18.0); LYMPH # 0.7 10*3/uL (1.3-4.4); LYMPH % 16.4 % (27.0-41.0); MEAN CELL VOLUME 91.4 fl (80.0-94.0); MEAN CORPUSCULAR HGB 30.1 pg (27.0-31.0); MEAN CORPUSCULAR HGB CONC 32.9 g/dl (33.0-37.0); MEAN PLATELET VOLUME 9.2 fl (9.6-12.3); MONO # 0.2 10*3/uL (0.1-1.0); MONO % 5.3 % (3.0-9.0); NEUT # 3.3 10*3/uL (2.3-7.9); NEUT % 73.9 % (47.0-73.0); PLATELET COUNT AUTOMATED 246 10*3/uL (130-400); RED BLOOD COUNT 3.59 10*6/uL (4.50-5.90); RED CELL DISTRI WIDTH 13.8 % (0-14.5); WHITE BLOOD COUNT 4.5 10*3/uL (4.8-10.8)
[2017-12-02 07:05] LABS: HEPATITIS B SURFACE AG Negative (Negative); HEPATITIS C VIRUS ANTIBODY <0.1 s/co (0.0-0.9)
[2017-12-02 08:08] LABS: RHEUMATOID ARTHRITIS FACTOR <10.0 IU/mL (0.0-13.9)
[2017-12-02 14:05] LABS: ANTI-RNP ANTIBODIES 0.6 AI (0.0-0.9)
[2017-12-03 00:03] LABS: CCP ANTIBODIES IGG/IGA 10 units (0-19); PTT-LA 33.5 sec (0.0-51.9)
[2017-12-03 07:05] LABS: LUPUS REFLEX INTERPRETATION Comment: (.)
[2017-12-06 16:07] LABS: HLA-B27 ANTIGEN Negative (.)
[2017-12-06 18:03] LABS: IGG P18 AB Present (.); IGG P23 AB Present (.); IGG P28 AB Present (.); IGG P30 AB Present (.); IGG P39 AB Present (.); IGG P41 AB Present (.); IGG P45 AB Present (.); IGG P58 AB Present (.); IGG P63 AB Present (.); IGG P66 AB Present (.); IGM P23 AB Present (.); IGM P39 AB Absent (.); IGM P41 AB Present (.); LYME IGG WB INTERPRETATION Positive (.); LYME IGM WB INTERPRETATION Positive (.)
[2017-12-07 07:26] LABS: LYME REFLEX CHARGE CHG
== END | disposition home or self-care (01) ==
LOC: LAB 11:25
PROVIDERS: Orthopaedic Surgery
DX: E78.00 Pure hypercholesterolemia, unspecified (principal); M25.50 Pain in unspecified joint; R53.1 Weakness; R70.0 Elevated erythrocyte sedimentation rate; Z79.899 Other long term (current) drug therapy

== ENCOUNTER 2017-12-14 05:40 | Inpatient (IN) | payer OTHER ==
[~2017-12-14] VITALS: Ht 175.3 cm; Wt 75.3 kg
[2017-12-14] VITALS (7 sets, daily range): BP systolic 120–156; BP diastolic 84–107
--- NOTE | ~2017-12-14 | EKG ---
[place], [place] ELECTROCARDIOGRAM REPORT NAME: BOB RUSSELL UNIT #: [id number] ROOM: 426 DOCTOR: MADISON HART [facility],DARLEEN BIRTHDATE: [birth year] DOS: 12/18/2017 TRACING TIME: 22:48. CONCLUSION: 1. Sinus rhythm with old anteroseptal infarction, left atrial disease and prolonged QRS. 2. Left anterior hemiblock. 3. Low voltage in limb leads, nonspecific ST changes. DARLEEN WALLACE MD CM:EKGRPT:ELECTROCARDIOGRAM REPORT [id number] DARLEEN WALLACE MD [facility]
--- NOTE | ~2017-12-14 | CON ---
[place], [place] REPORT OF CONSULTATION NAME: BOB RUSSELL UNIT #: [id number] ROOM: 426 DOCTOR: SUNNY ZHONG MD BIRTHDATE: [birth year] DOS: 12/17/2017 HISTORY OF PRESENT ILLNESS: This is a 67-year-old -[place] gentleman with a history of coronary artery disease. He had myocardial infarctions in 2009, 2011 and 2014 and had several stents deployed over the years, last one that was in 2014. His EF has been estimated to be 30-35% as of an echocardiogram done recently. He also has had heart failure in the past. Also, he has chronic kidney disease and diabetes mellitus type 2, essential hypertension, hyperlipidemia, hypothyroidism, chronic anemia, psoriasis, DJD, and lumbar disk problems as well. SOCIAL HISTORY: He quit smoking a long time ago, does not use alcoholic beverages. Lives at home. He had been noticing increasing shortness of breath for about 2-3 weeks. It gradually crept up and about a week or so ago, breathing got worse and at that time, he began to notice that he had to wake up around 2:00 in the morning. Because of shortness of breath, he had to sit up and ease his breathing. He was not aware of any swelling in the legs. He had no chest pain or pressure. No palpitation, dizziness or loss of consciousness. His energy level had decreased as well. REVIEW OF SYSTEMS: He has had no nausea, abdominal pain or blood in the stool. No acute neurological symptoms. No urinary symptoms. He has not had any cough, fever, chills or sore throat. His appetite has been fine. HOME MEDICATIONS: Include albuterol/Proventil HFA 2 puffs q.i.d., latanoprost eye drops at night, aspirin 81 daily, carvedilol is now 25 mg b.i.d.; he was in the lower dose at home, clopidogrel 75 mg daily, Synthroid daily, glimepiride 2 mg b.i.d., hydralazine 10 mg t.i.d., levothyroxine 100 mcg daily, metformin 500 mg daily, spironolactone 25 mg half tablet 3 times a week. PHYSICAL EXAMINATION: GENERAL: Reveals this patient who looks a little pale. He is alert, oriented. There is no thyromegaly or finger clubbing. He is not cyanotic nor jaundiced. VITAL SIGNS: Pulse is regular at 88 beats per minute, blood pressure 144/84, 113/71, 146/97. JVP is +7 cm with positive AJR. NECK: No carotid bruits are present. THROAT: There is no thyromegaly. CARDIOVASCULAR: There is no parasternal heave. Auscultation reveals S1, S2. No obvious murmurs. EXTREMITIES: He has at least 2+ edema below the knees. Pedal pulses are palpable, but with a little difficulty because of edema. RESPIRATORY: He is mildly tachypneic. Percussion note is normal. Auscultation reveals crackles in the lower one-third of the lung segura, more so on the left side. [place], [place] REPORT OF CONSULTATION NAME: BOB RUSSELL UNIT #: [id number] ROOM: 426 DOCTOR: SUNNY ZHONG MD BIRTHDATE: [birth year] DIAGNOSTIC DATA:: An ECG showed sinus tachycardia at 114 beats per minute with left anterior hemiblock and old anterior wall myocardial infarction. Monitor shows normal sinus rhythm and there were 2 nonsustained monomorphic ventricular tachycardia episodes, one was of 9 beats at a rate of 150 beats per minute. I reviewed the chest x-ray, which demonstrates somewhat prominent cardiac silhouette and [id number] pulmonary edema. LABORATORY DATA: BUN 20, creatinine 1.32. Troponin I level has been less than 0.015. Hemoglobin 10.3 mg/dL. NT-proBNP 6549. He had an echocardiogram 3 months ago. It demonstrated an LVEF of about 30-35% with moderately dilated LV cavity. IMPRESSION: 1. This patient has acute on systolic heart failure due to severe ischemic cardiomyopathy. 2. Nonsustained ventricular tachycardia. This is of concern, particularly in this patient with a mildly reduced left ventricular systolic function and underlying coronary artery disease. 3. Mild renal failure with very mild renal insufficiency. 4. Coronary artery disease, status post stents in the remote past. I do not believe this patient has pneumonia. RECOMMENDATIONS: 1. IV furosemide for a few days while monitoring potassium and magnesium. I suggest magnesium level should be kept close to 2 and he should be on magnesium and potassium supplements. 2. Spironolactone should be used on a daily basis, probably 25 mg daily. ASHLEY inhibitor should be added and dose need to be gradually maximized and this may eventually enhance LV systolic function. 3. Nonsustained ventricular tachycardia is of some concern in this patient. He probably will require an AICD implantation and Dr. Regis Timmons needs to be aware of this. 4. Anemia, Underlying reason is not clear. I thank on behalf of Dr. Regis Timmons for this consult. [place], [place] REPORT OF CONSULTATION NAME: BOB RUSSELL Renan UNIT #: [id number] ROOM: 426 DOCTOR: SUNNY ZHONG MD BIRTHDATE: [birth year] SUNNY ZHONG MD CM:CONSTR:REPORT OF CONSULTATION 1134 12/17/17 1457 interface DARLEEN TIMMONS MD [facility]
--- NOTE | ~2017-12-14 | CON ---
[place], [place] REPORT OF CONSULTATION NAME: BOB RUSSELL UNIT #: [id number] ROOM: 426 DOCTOR: FARHEEN HART,SUNNY BIRTHDATE: [birth year] DOS: ADDENDUM The patient's evaluation and recommendations were discussed with the medical team. SUNNY ZHONG MD CM:CONSTR:REPORT OF CONSULTATION 1135 12/17/17 2357 interface
--- NOTE | ~2017-12-14 | EKG ---
[place], [place] ELECTROCARDIOGRAM REPORT NAME: BOB RUSSELL UNIT #: [id number] ROOM: 426 DOCTOR: AURORA DRAFT REPORT BIRTHDATE: [birth year] [facility] Test Date: 2017-12-18 Test Time: 22:48:06 Pat Name: BOB RUSSELL Department: Room: [facility] 1 Gender: M Home Visit Field Care Manager: 51 : 1950 Requested By: KATHLEEN LACY Order Number: [id number] Reading MD: Measurements Intervals [place] Rate: 73 P: -12 TX: 228 QRS: -65 QRSD: 118 T: 177 QT: 460 QTc: 507 Interpretive Statements Sinus rhythm Atrial premature complexes in couplets Prolonged TX interval Left atrial enlargement Nonspecific IVCD with LAD Left ventricular hypertrophy Inferior infarct, old Anterior infarct, old Lateral leads are also involved No previous ECG available for comparison CM:EKGRPT:ELECTROCARDIOGRAM REPORT 47 50 KATHLEEN MANN DRAFT REPORT KATHLEEN LACY DO
[~2017-12-14 05:40] MED LIST changes: -ALDACTONE25 MG PO; -CARVEDILOL25 MG PO; -COREG25 MG PO; -DOXYCYCLINE MO100 M1 PO; -FUROSEMIDE40 MG PO; -GLUCOPHAGE500 M1 PO; -GLUCOPHAGE500 MG PO; -HYDRALAZINE10 MG PO; -IRON PO; -LATANOPROST2.5 ML OU; -LISINOPRIL5 MG PO; -MULTIZYME PO; -PROVENTIL HFA6.7 GM INH; -Synthroid,Lev100 MCG PO; -VITAMIN D31000 UNI1 PO; -[UNRECOGNIZED DRUG - OTHER] PO
[2017-12-14] MEDS ORDERED: ARMOUR THYROID60 MG PO (06:02)
[2017-12-14] MEDS ORDERED: Synthroid,Lev100 MCG PO (06:02)
[2017-12-14] MEDS ORDERED: AMARYL2 MG PO (06:03)
[2017-12-14] MEDS ORDERED: GLUCOPHAGE500 M1 PO (06:03)
[2017-12-14] MEDS ORDERED: HYDRALAZINE10 MG PO (06:04)
[2017-12-14] MEDS ORDERED: [UNRECOGNIZED DRUG - OTHER] PO (06:05)
[2017-12-14] MEDS ORDERED: CLOPIDOGREL75 MG PO (06:06)
[2017-12-14] MEDS ORDERED: MULTIZYME PO (06:06)
[2017-12-14] MEDS ORDERED: ALDACTONE25 M1 PO (06:07)
[2017-12-14] MEDS ORDERED: ASPIRIN81 M1 PO (06:07)
[2017-12-14] MEDS ORDERED: COREG25 MG PO (06:08)
[2017-12-14] MEDS ORDERED: IRON PO (06:10)
[2017-12-14] MEDS ORDERED: LATANOPROST2.5 ML OU (06:10)
[2017-12-14 06:12] LABS: BASO % 0.6 % (0.0-1.0); EOS # 0.2 10*3/uL (0.0-0.4); EOS % 3.5 % (1.0-4.0); HEMATOCRIT 32.5 % (42.0-52.0); HEMOGLOBIN 10.8 g/dl (14.0-18.0); LYMPH # 0.6 10*3/uL (1.3-4.4); MEAN CORPUSCULAR HGB 30.3 pg (27.0-31.0); MEAN CORPUSCULAR HGB CONC 33.2 g/dl (33.0-37.0); MEAN PLATELET VOLUME 10.1 fl (9.6-12.3); MONO # 0.3 10*3/uL (0.1-1.0); MONO % 5.8 % (3.0-9.0); NEUT # 3.7 10*3/uL (2.3-7.9); NEUT % 77.5 % (47.0-73.0); PLATELET COUNT AUTOMATED 216 10*3/uL (130-400); RED BLOOD COUNT 3.57 10*6/uL (4.50-5.90); RED CELL DISTRI WIDTH 14.9 % (0-14.5); WHITE BLOOD COUNT 4.8 10*3/uL (4.8-10.8)
[2017-12-14 06:21] LABS: ACT PARTIAL THROMBO TIME 23.2 SECONDS (20.8-31.5)
[2017-12-14 06:30] LABS: ALBUMIN 3.7 gm/dl (3.1-4.5); ALKALINE PHOSPHATASE 64 U/L (45-117); BUN 20 mg/dl (7-24); CHLORIDE 104 mmol/L (98-107); CREATININE 1.32 mg/dL (0.70-1.30); POTASSIUM 4.4 mmol/L (3.5-5.1); SGOT/AST 22 IU/L (3-35); SGPT/ALT 24 U/L (12-78); SODIUM 137 mmol/L (136-145); TOTAL PROTEIN 7.4 gm/dL (6.4-8.2)
[2017-12-14] MEDS ORDERED: PROVENTIL HFA6.7 GM INH (15:23)
[2017-12-15] VITALS: BP 145/84
[2017-12-15 06:08] VITALS: BP 153/104
[2017-12-15 08:00] VITALS: BP 134/86
[2017-12-15 08:08] LABS: BASO % 0.6 % (0.0-1.0); EOS # 0.1 10*3/uL (0.0-0.4); EOS % 2.9 % (1.0-4.0); HEMATOCRIT 32.1 % (42.0-52.0); HEMOGLOBIN 10.3 g/dl (14.0-18.0); LYMPH # 0.7 10*3/uL (1.3-4.4); MEAN CORPUSCULAR HGB 29.5 pg (27.0-31.0); MEAN CORPUSCULAR HGB CONC 32.1 g/dl (33.0-37.0); MEAN PLATELET VOLUME 9.9 fl (9.6-12.3); MONO # 0.2 10*3/uL (0.1-1.0); MONO % 4.6 % (3.0-9.0); NEUT # 3.7 10*3/uL (2.3-7.9); NEUT % 77.7 % (47.0-73.0); PLATELET COUNT AUTOMATED 212 10*3/uL (130-400); RED BLOOD COUNT 3.49 10*6/uL (4.50-5.90); RED CELL DISTRI WIDTH 15.3 % (0-14.5); WHITE BLOOD COUNT 4.8 10*3/uL (4.8-10.8)
[2017-12-15 08:27] LABS: BUN 18 mg/dl (7-24); CHLORIDE 108 mmol/L (98-107); CHOLESTEROL 150 mg/dL (<200); CREATININE 1.16 mg/dL (0.70-1.30); FREE T4 1.59 ng/dl (0.76-1.46); HDL CHOLESTEROL 28 mg/dl (40-60); LDL CHOLESTEROL 89 mg/dL (9-159); PHOSPHOROUS 2.5 mg/dL (2.5-4.9); POTASSIUM 4.6 mmol/L (3.5-5.1); SODIUM 141 mmol/L (136-145); TRIGLYCERIDES 164 mg/dl (<150); VLDL CHOLESTEROL 33 mg/dL (6-40)
[2017-12-15 09:30] LABS: VITAMIN D, 25-HYDROXY 24.5 ng/mL (30-100)
[2017-12-15 12:00] VITALS: BP 121/83
[2017-12-15 16:00] VITALS: BP 138/93
[2017-12-15 19:15] VITALS: BP 132/82
[2017-12-16] VITALS: BP 125/72
[2017-12-16 09:08] LABS: POTASSIUM 4.5 mmol/L (3.5-5.1)
[2017-12-16 12:00] VITALS: BP 116/77
[2017-12-16 16:00] VITALS: BP 129/92
[2017-12-16 20:00] VITALS: BP 146/97
[2017-12-17] VITALS: BP 113/71
[2017-12-17 08:00] VITALS: BP 144/84
[2017-12-17 12:00] VITALS: BP 107/81
[2017-12-17 16:00] VITALS: BP 107/66
[2017-12-17 20:00] VITALS: BP 119/85
[2017-12-18] VITALS: BP 100/78
[2017-12-18 06:35] LABS: BASO % 0.8 % (0.0-1.0); EOS # 0.2 10*3/uL (0.0-0.4); EOS % 4.7 % (1.0-4.0); HEMATOCRIT 31.8 % (42.0-52.0); HEMOGLOBIN 10.4 g/dl (14.0-18.0); LYMPH # 0.8 10*3/uL (1.3-4.4); LYMPH % 20.9 % (27.0-41.0); MEAN CELL VOLUME 91.1 fl (80.0-94.0); MEAN CORPUSCULAR HGB 29.8 pg (27.0-31.0); MEAN CORPUSCULAR HGB CONC 32.7 g/dl (33.0-37.0); MEAN PLATELET VOLUME 10.3 fl (9.6-12.3); MONO # 0.3 10*3/uL (0.1-1.0); MONO % 8.6 % (3.0-9.0); NEUT # 2.5 10*3/uL (2.3-7.9); NEUT % 64.2 % (47.0-73.0); PLATELET COUNT AUTOMATED 200 10*3/uL (130-400); RED BLOOD COUNT 3.49 10*6/uL (4.50-5.90); RED CELL DISTRI WIDTH 15.9 % (0-14.5); WHITE BLOOD COUNT 3.8 10*3/uL (4.8-10.8)
[2017-12-18 07:08] LABS: BUN 27 mg/dl (7-24); CHLORIDE 103 mmol/L (98-107); CREATININE 1.42 mg/dL (0.70-1.30); POTASSIUM 4.2 mmol/L (3.5-5.1); SODIUM 137 mmol/L (136-145)
[2017-12-18 08:00] VITALS: BP 129/87
[2017-12-18 11:24] VITALS: BP 92/64
[2017-12-18 12:00] VITALS: BP 92/64
[2017-12-18 16:00] VITALS: BP 128/80
[2017-12-18 20:00] VITALS: BP 126/81
[2017-12-19] VITALS: BP 129/81
[2017-12-19 08:00] VITALS: BP 121/76
[2017-12-19 12:00] VITALS: BP 116/76
[2017-12-19 16:00] VITALS: BP 112/64; BP 93/57
[2017-12-19 20:00] VITALS: BP 112/55
[2017-12-20] VITALS: BP 103/70
[2017-12-20 06:28] LABS: BASO # 0.1 10*3/uL (0.0-0.1); BASO % 1.5 % (0.0-1.0); EOS # 0.2 10*3/uL (0.0-0.4); EOS % 5.8 % (1.0-4.0); HEMATOCRIT 31.6 % (42.0-52.0); HEMOGLOBIN 10.5 g/dl (14.0-18.0); LYMPH % 29.4 % (27.0-41.0); MEAN CELL VOLUME 90.3 fl (80.0-94.0); MEAN CORPUSCULAR HGB CONC 33.2 g/dl (33.0-37.0); MEAN PLATELET VOLUME 10.3 fl (9.6-12.3); MONO # 0.3 10*3/uL (0.1-1.0); MONO % 9.3 % (3.0-9.0); NEUT # 1.8 10*3/uL (2.3-7.9); NEUT % 53.4 % (47.0-73.0); PLATELET COUNT AUTOMATED 220 10*3/uL (130-400); RED CELL DISTRI WIDTH 16.4 % (0-14.5); WHITE BLOOD COUNT 3.4 10*3/uL (4.8-10.8)
[2017-12-20 06:56] LABS: ALBUMIN 3.6 gm/dl (3.1-4.5); CREATININE 1.46 mg/dL (0.70-1.30); PHOSPHOROUS 4.1 mg/dL (2.5-4.9); POTASSIUM 3.7 mmol/L (3.5-5.1); TOTAL PROTEIN 7.1 gm/dL (6.4-8.2)
[2017-12-20 08:00] VITALS: BP 148/73
[2017-12-20 12:00] VITALS: BP 124/82
[2017-12-20] MEDS ORDERED: CARVEDILOL25 MG PO (13:08)
[2017-12-20] MEDS ORDERED: ALDACTONE25 MG PO (13:08)
[2017-12-20] MEDS ORDERED: VITAMIN D31000 UNI1 PO (13:08)
[2017-12-20] MEDS ORDERED: GLUCOPHAGE500 MG PO (13:08)
[2017-12-20] MEDS ORDERED: LISINOPRIL5 MG PO (13:08)
[2017-12-20] MEDS ORDERED: DOXYCYCLINE MO100 M1 PO (13:08)
[2017-12-20] MEDS ORDERED: FUROSEMIDE40 MG PO (13:08)
[2018-01-19] MEDS ORDERED: MECLIZINE HCL25 M2 PO (22:45)
== END 2017-12-20 14:30 | disposition home or self-care (01) | DRG 871 ==
LOC: ED 05:40 → EDHOLD 06:29 → 4E 06:29
PROVIDERS: Family Medicine; Internal Medicine; Internal Medicine Cardiovascular Disease; Student in an Organized Health Care Education/Training Program
DX: A41.9 Sepsis, unspecified organism (principal); J18.9 Pneumonia, unspecified organism; N17.0 Acute kidney failure with tubular necrosis; I50.23 Acute on chronic systolic (congestive) heart failure; I47.2 Ventricular tachycardia; N18.4 Chronic kidney disease, stage 4 (severe); A69.20 Lyme disease, unspecified; I13.0 Hypertensive heart and chronic kidney disease with heart failure and stage 1 through stage 4 chronic kidney disease, or unspecified chronic kidney disease; E05.90 Thyrotoxicosis, unspecified without thyrotoxic crisis or storm; I25.5 Ischemic cardiomyopathy; E11.22 Type 2 diabetes mellitus with diabetic chronic kidney disease; I25.10 Atherosclerotic heart disease of native coronary artery without angina pectoris; E78.5 Hyperlipidemia, unspecified; F80.81 Childhood onset fluency disorder; E11.65 Type 2 diabetes mellitus with hyperglycemia; D64.9 Anemia, unspecified; E03.9 Hypothyroidism, unspecified; L40.9 Psoriasis, unspecified; E55.9 Vitamin D deficiency, unspecified; Z82.49 Family history of ischemic heart disease and other diseases of the circulatory system; Z95.5 Presence of coronary angioplasty implant and graft; I25.2 Old myocardial infarction; Z83.3 Family history of diabetes mellitus; Z80.0 Family history of malignant neoplasm of digestive organs; Z79.82 Long term (current) use of aspirin; Z91.041 Radiographic dye allergy status; Z79.84 Long term (current) use of oral hypoglycemic drugs; Z72.0 Tobacco use; Z71.6 Tobacco abuse counseling

== ENCOUNTER → 2017-12-22 | Outpatient (CLI) | payer OTHER ==
[~2017-12-22] MED LIST changes: +ALDACTONE25 MG PO; +CARVEDILOL25 MG PO; +COREG25 MG PO; +DOXYCYCLINE MO100 M1 PO; +FUROSEMIDE40 MG PO; +GLUCOPHAGE500 M1 PO; +GLUCOPHAGE500 MG PO; +HYDRALAZINE10 MG PO; +IRON PO; +LATANOPROST2.5 ML OU; +LISINOPRIL5 MG PO; +MECLIZINE HCL25 M2 PO; +MULTIZYME PO; +PROVENTIL HFA6.7 GM INH; +Synthroid,Lev100 MCG PO; +VITAMIN D31000 UNI1 PO; +[UNRECOGNIZED DRUG - OTHER] PO
== END | disposition home or self-care (01) ==
LOC: NM 09:48
DX: M17.11 Unilateral primary osteoarthritis, right knee (principal); M25.461 Effusion, right knee

== ENCOUNTER → 2018-02-09 | Outpatient (CLI) | payer OTHER | END | disposition home or self-care (01) | LOC: MRI 08:43 | DX: S83.411A Sprain of medial collateral ligament of right knee, initial encounter (principal); M22.41 Chondromalacia patellae, right knee; M25.461 Effusion, right knee; E11.9 Type 2 diabetes mellitus without complications; X58.XXXA Exposure to other specified factors, initial encounter; Y93.89 Activity, other specified; Y92.89 Other specified places as the place of occurrence of the external cause; Y99.8 Other external cause status ==

== ENCOUNTER → 2018-02-10 | Outpatient (CLI) | payer OTHER ==
[2018-02-10 11:00] LABS: HEMATOCRIT 28.8 % (42.0-52.0); HEMOGLOBIN 9.9 g/dl (14.0-18.0); MEAN CELL VOLUME 90.9 fl (80.0-94.0); MEAN CORPUSCULAR HGB 31.2 pg (27.0-31.0); MEAN CORPUSCULAR HGB CONC 34.4 g/dl (33.0-37.0); MEAN PLATELET VOLUME 9.9 fl (9.6-12.3); RED BLOOD COUNT 3.17 10*6/uL (4.50-5.90); RED CELL DISTRI WIDTH 15.9 % (0-14.5); WHITE BLOOD COUNT 3.7 10*3/uL (4.8-10.8)
[2018-02-10 11:28] LABS: ALBUMIN 3.8 gm/dl (3.1-4.5); CREATININE 1.5 mg/dL (0.70-1.30); PHOSPHOROUS 3.5 mg/dL (2.5-4.9); POTASSIUM 4.6 mmol/L (3.5-5.1); TOTAL PROTEIN 7.4 gm/dL (6.4-8.2)
[2018-02-10 11:49] LABS: PTH INTACT 36.6 pg/mL (18.5-88.0)
[2018-02-13 13:02] LABS: METHYLMALONIC ACID 158 nmol/L (0-378)
== END | disposition home or self-care (01) ==
LOC: LAB 10:27
PROVIDERS: Registered Nurse Flight
DX: N18.4 Chronic kidney disease, stage 4 (severe) (principal)

== ENCOUNTER → 2018-05-05 | Outpatient (CLI) | payer OTHER ==
[2018-05-05 09:51] LABS: BASO # 0.1 10*3/uL (0.0-0.1); BASO % 1.1 % (0.0-1.0); EOS # 0.3 10*3/uL (0.0-0.4); EOS % 6.6 % (1.0-4.0); HEMATOCRIT 29.8 % (42.0-52.0); HEMOGLOBIN 10.7 g/dl (14.0-18.0); LYMPH # 0.7 10*3/uL (1.3-4.4); LYMPH % 14.3 % (27.0-41.0); MEAN CELL VOLUME 94.9 fl (80.0-94.0); MEAN CORPUSCULAR HGB 34.1 pg (27.0-31.0); MEAN CORPUSCULAR HGB CONC 35.9 g/dl (33.0-37.0); MEAN PLATELET VOLUME 10.1 fl (9.6-12.3); MONO # 0.4 10*3/uL (0.1-1.0); MONO % 7.5 % (3.0-9.0); NEUT # 3.3 10*3/uL (2.3-7.9); NEUT % 70.3 % (47.0-73.0); PLATELET COUNT AUTOMATED 195 10*3/uL (130-400); RED BLOOD COUNT 3.14 10*6/uL (4.50-5.90); RED CELL DISTRI WIDTH 13.1 % (0-14.5); WHITE BLOOD COUNT 4.7 10*3/uL (4.8-10.8)
[2018-05-05 09:58] LABS: ALBUMIN 4.2 gm/dl (3.1-4.5); CREATININE 1.46 mg/dL (0.70-1.30); POTASSIUM 4.5 mmol/L (3.5-5.1); TOTAL PROTEIN 7.8 gm/dL (6.4-8.2)
[2018-05-05 10:07] LABS: THYROID STIM HORMONE (HS) 6.14 uIU/ml (0.358-4.75)
== END | disposition home or self-care (01) ==
LOC: LAB 09:05
PROVIDERS: Registered Nurse Flight
DX: E78.5 Hyperlipidemia, unspecified (principal); E11.8 Type 2 diabetes mellitus with unspecified complications; E03.9 Hypothyroidism, unspecified; N18.3 Chronic kidney disease, stage 3 (moderate)

== ENCOUNTER → 2018-06-14 | Outpatient (CLI) | payer OTHER ==
[~2018-06-14] MED LIST changes: +CEPHALEXIN500 M1 PO
[2018-06-14 09:12] LABS: BUN 22 mg/dl (7-24); CHLORIDE 104 mmol/L (98-107); CREATININE 1.41 mg/dL (0.70-1.30); POTASSIUM 4.7 mmol/L (3.5-5.1); SODIUM 137 mmol/L (136-145)
== END | disposition home or self-care (01) ==
LOC: LAB 08:08
PROVIDERS: Internal Medicine Cardiovascular Disease
DX: I50.22 Chronic systolic (congestive) heart failure (principal); I25.5 Ischemic cardiomyopathy

== ENCOUNTER 2018-06-29 14:08 | Emergency (ER) | payer OTHER ==
[~2018-06-29] VITALS: Ht 175.2 cm; Wt 80.7 kg
[~2018-06-29 14:08] MED LIST changes: -CEPHALEXIN500 M1 PO
[2018-06-29] MEDS ORDERED: CEPHALEXIN500 M1 PO (15:21)
== END 2018-06-29 14:41 | disposition home or self-care (01) ==
LOC: ED 14:08
DX: L02.811 Cutaneous abscess of head [any part, except face] (principal); Z79.899 Other long term (current) drug therapy; Z79.82 Long term (current) use of aspirin; Z87.891 Personal history of nicotine dependence

== ENCOUNTER → 2018-07-01 | Outpatient (CLI) | payer OTHER ==
[~2018-07-01] MED LIST changes: +CEPHALEXIN500 M1 PO
== END | disposition home or self-care (01) ==
LOC: RESCLI 09:12
DX: L02.91 Cutaneous abscess, unspecified (principal); E03.9 Hypothyroidism, unspecified; I25.2 Old myocardial infarction; Z79.899 Other long term (current) drug therapy

== ENCOUNTER → 2018-09-07 | Outpatient (CLI) | payer OTHER ==
[2018-09-07 10:11] LABS: EOS # 0.2 10*3/uL (0.0-0.4); EOS % 5.6 % (1.0-4.0); HEMATOCRIT 34.7 % (42.0-52.0); HEMOGLOBIN 11.8 g/dl (14.0-18.0); LYMPH # 0.6 10*3/uL (1.3-4.4); LYMPH % 14.7 % (27.0-41.0); MEAN CELL VOLUME 96.7 fl (80.0-94.0); MEAN CORPUSCULAR HGB 32.9 pg (27.0-31.0); MEAN PLATELET VOLUME 10.6 fl (9.6-12.3); MONO # 0.4 10*3/uL (0.1-1.0); MONO % 8.6 % (3.0-9.0); NEUT # 2.9 10*3/uL (2.3-7.9); NEUT % 69.6 % (47.0-73.0); PLATELET COUNT AUTOMATED 158 10*3/uL (130-400); RED BLOOD COUNT 3.59 10*6/uL (4.50-5.90); RED CELL DISTRI WIDTH 13.3 % (0-14.5); WHITE BLOOD COUNT 4.1 10*3/uL (4.8-10.8)
[2018-09-07 10:44] LABS: ALBUMIN 4.2 gm/dl (3.1-4.5); ALKALINE PHOSPHATASE 69 U/L (45-117); BUN 30 mg/dl (7-24); CHLORIDE 105 mmol/L (98-107); CHOLESTEROL 122 mg/dL (<200); CREATININE 1.37 mg/dL (0.70-1.30); HDL CHOLESTEROL 38 mg/dl (40-60); LDL CHOLESTEROL 58 mg/dL (9-159); POTASSIUM 4.6 mmol/L (3.5-5.1); SGOT/AST 18 IU/L (3-35); SGPT/ALT 29 U/L (12-78); SODIUM 138 mmol/L (136-145); TOTAL PROTEIN 7.5 gm/dL (6.4-8.2); TRIGLYCERIDES 132 mg/dl (<150); VLDL CHOLESTEROL 26 mg/dL (6-40)
[2018-09-07 10:51] LABS: THYROID STIM HORMONE (HS) 0.303 uIU/ml (0.358-4.75)
== END | disposition home or self-care (01) ==
LOC: LAB 09:41
PROVIDERS: Registered Nurse Flight
DX: E11.8 Type 2 diabetes mellitus with unspecified complications (principal); E78.5 Hyperlipidemia, unspecified; E03.9 Hypothyroidism, unspecified; L02.91 Cutaneous abscess, unspecified

== ENCOUNTER → 2018-12-07 | Outpatient (CLI) | payer OTHER ==
[2018-12-07 09:26] LABS: BASO % 1.2 % (0.0-1.0); EOS # 0.2 10*3/uL (0.0-0.4); HEMATOCRIT 34.1 % (42.0-52.0); HEMOGLOBIN 11.8 g/dl (14.0-18.0); LYMPH # 0.9 10*3/uL (1.3-4.4); LYMPH % 26.7 % (27.0-41.0); MEAN CORPUSCULAR HGB 32.9 pg (27.0-31.0); MEAN CORPUSCULAR HGB CONC 34.6 g/dl (33.0-37.0); MEAN PLATELET VOLUME 10.3 fl (9.6-12.3); MONO # 0.4 10*3/uL (0.1-1.0); MONO % 11.7 % (3.0-9.0); NEUT # 1.8 10*3/uL (2.3-7.9); NEUT % 53.8 % (47.0-73.0); PLATELET COUNT AUTOMATED 149 10*3/uL (130-400); RED BLOOD COUNT 3.59 10*6/uL (4.50-5.90); RED CELL DISTRI WIDTH 13.4 % (0-14.5); WHITE BLOOD COUNT 3.3 10*3/uL (4.8-10.8)
[2018-12-07 09:53] LABS: ALBUMIN 4.2 gm/dl (3.1-4.5); CREATININE 1.5 mg/dL (0.70-1.30); POTASSIUM 4.9 mmol/L (3.5-5.1)
[2018-12-07 10:01] LABS: THYROID STIM HORMONE (HS) 0.384 uIU/ml (0.358-4.75)
== END | disposition home or self-care (01) ==
LOC: LAB 08:33
PROVIDERS: Registered Nurse Flight
DX: E11.22 Type 2 diabetes mellitus with diabetic chronic kidney disease (principal); N18.3 Chronic kidney disease, stage 3 (moderate); E78.5 Hyperlipidemia, unspecified; E03.9 Hypothyroidism, unspecified

== ENCOUNTER → 2019-01-30 | Outpatient (CLI) | payer OTHER ==
[2019-01-30 11:54] LABS: BASO % 0.9 % (0.0-1.0); EOS # 0.1 10*3/uL (0.0-0.4); EOS % 4.1 % (1.0-4.0); HEMATOCRIT 29.4 % (42.0-52.0); HEMOGLOBIN 10.5 g/dl (14.0-18.0); LYMPH # 0.8 10*3/uL (1.3-4.4); LYMPH % 23.8 % (27.0-41.0); MEAN CELL VOLUME 95.5 fl (80.0-94.0); MEAN CORPUSCULAR HGB 34.1 pg (27.0-31.0); MEAN CORPUSCULAR HGB CONC 35.7 g/dl (33.0-37.0); MEAN PLATELET VOLUME 10.1 fl (9.6-12.3); MONO # 0.3 10*3/uL (0.1-1.0); MONO % 7.9 % (3.0-9.0); NEUT # 2.1 10*3/uL (2.3-7.9); NEUT % 62.7 % (47.0-73.0); PLATELET COUNT AUTOMATED 142 10*3/uL (130-400); RED BLOOD COUNT 3.08 10*6/uL (4.50-5.90); RED CELL DISTRI WIDTH 13.4 % (0-14.5); WHITE BLOOD COUNT 3.4 10*3/uL (4.8-10.8)
[2019-01-30 12:15] LABS: CREATININE 1.55 mg/dL (0.70-1.30); POTASSIUM 4.5 mmol/L (3.5-5.1)
[2019-01-30 12:22] LABS: THYROID STIM HORMONE (HS) 0.389 uIU/ml (0.358-4.75); TOTAL PROTEIN 6.7 gm/dL (6.4-8.2)
== END | disposition home or self-care (01) ==
LOC: LAB 11:08
PROVIDERS: Registered Nurse Flight
DX: E11.22 Type 2 diabetes mellitus with diabetic chronic kidney disease (principal); N18.4 Chronic kidney disease, stage 4 (severe); D63.1 Anemia in chronic kidney disease; E03.9 Hypothyroidism, unspecified; D72.819 Decreased white blood cell count, unspecified; E78.5 Hyperlipidemia, unspecified

== ENCOUNTER → 2019-03-01 | Outpatient (CLI) | payer OTHER | END | disposition home or self-care (01) | LOC: US 07:23 | DX: E11.22 Type 2 diabetes mellitus with diabetic chronic kidney disease (principal); N18.4 Chronic kidney disease, stage 4 (severe) ==

== ENCOUNTER → 2019-04-03 | Outpatient (CLI) | payer OTHER ==
[2019-04-03 08:59] LABS: BILIRUBIN NEGATIVE (NEGATIVE); BLOOD NEGATIVE (NEGATIVE); CLARITY CLEAR (CLEAR); COLOR YELLOW (YELLOW); GLUCOSE NEGATIVE (NEGATIVE); KETONE NEGATIVE (NEGATIVE); LEUKO ESTERASE NEGATIVE (NEGATIVE); NITRITE NEGATIVE (NEGATIVE); PH 5.5 (5.0-9.0); UROBILINOGEN 0.2 E.U./dl (0.2-1.0)
[2019-04-03 09:10] LABS: BACTERIA TRACE; EPITHELIAL CELLS 0-2; MUCOUS 1+
[2019-04-03 09:13] LABS: BASO % 1.1 % (0.0-1.0); EOS # 0.2 10*3/uL (0.0-0.4); EOS % 6.3 % (1.0-4.0); HEMATOCRIT 32.8 % (42.0-52.0); HEMOGLOBIN 11.6 g/dl (14.0-18.0); LYMPH # 0.7 10*3/uL (1.3-4.4); LYMPH % 23.5 % (27.0-41.0); MEAN CELL VOLUME 96.8 fl (80.0-94.0); MEAN CORPUSCULAR HGB 34.2 pg (27.0-31.0); MEAN CORPUSCULAR HGB CONC 35.4 g/dl (33.0-37.0); MEAN PLATELET VOLUME 10.5 fl (9.6-12.3); MONO # 0.3 10*3/uL (0.1-1.0); MONO % 10.9 % (3.0-9.0); NEUT # 1.7 10*3/uL (2.3-7.9); NEUT % 57.8 % (47.0-73.0); PLATELET COUNT AUTOMATED 140 10*3/uL (130-400); RED BLOOD COUNT 3.39 10*6/uL (4.50-5.90); RED CELL DISTRI WIDTH 13.4 % (0-14.5); WHITE BLOOD COUNT 2.9 10*3/uL (4.8-10.8)
[2019-04-03 09:28] LABS: ALBUMIN 4.2 gm/dl (3.1-4.5); CREATININE 1.69 mg/dL (0.70-1.30); POTASSIUM 4.6 mmol/L (3.5-5.1); TOTAL PROTEIN 7.6 gm/dL (6.4-8.2)
[2019-04-03 09:35] LABS: THYROID STIM HORMONE (HS) 0.155 uIU/ml (0.358-4.75)
[2019-04-03 10:24] LABS: FERRITIN 264.9 ng/mL (22.0-322.0); VITAMIN D, 25-HYDROXY 36.4 ng/mL (30-100)
[2019-04-03 10:25] LABS: PTH INTACT 36.1 pg/mL (18.5-88.0)
[2019-04-04 11:09] LABS: CREATININE,URINE 147.1 mg/dL (Not Estab.); MICRO ALBUMIN/CRE RATIO 10.3 (0.0-30.0)
== END | disposition home or self-care (01) ==
LOC: LAB 08:08
PROVIDERS: Internal Medicine Nephrology
DX: E03.9 Hypothyroidism, unspecified (principal); E78.5 Hyperlipidemia, unspecified; N18.3 Chronic kidney disease, stage 3 (moderate); D72.819 Decreased white blood cell count, unspecified; R79.89 Other specified abnormal findings of blood chemistry

== ENCOUNTER → 2019-05-09 | Outpatient (CLI) | payer OTHER ==
[2019-05-09 10:43] LABS: BILIRUBIN NEGATIVE (NEGATIVE); BLOOD NEGATIVE (NEGATIVE); CLARITY CLEAR (CLEAR); COLOR YELLOW (YELLOW); GLUCOSE NEGATIVE (NEGATIVE); KETONE NEGATIVE (NEGATIVE); LEUKO ESTERASE NEGATIVE (NEGATIVE); NITRITE NEGATIVE (NEGATIVE); PH 5.5 (5.0-9.0); SPECIFIC GRAVITY 1.025 (1.005-1.030); UROBILINOGEN 0.2 E.U./dl (0.2-1.0)
[2019-05-09 11:01] LABS: BACTERIA TRACE; MUCOUS 1+
[2019-05-09 11:04] LABS: CREATININE 1.89 mg/dL (0.70-1.30); POTASSIUM 4.9 mmol/L (3.5-5.1)
[2019-05-10 05:10] LABS: COMPLEMENT C4 001834 14 mg/dL (14-44); RHEUMATOID ARTHRITIS FACTOR 14.4 IU/mL (0.0-13.9)
[2019-05-10 10:08] LABS: CREATININE,URINE 169.7 mg/dL (Not Estab.); MICRO ALBUMIN/CRE RATIO 17.1 (0.0-30.0)
[2019-05-10 14:08] LABS: ANTI-DSDNA ANTIBODIES 096339 <1 IU/mL (0-9)
== END | disposition home or self-care (01) ==
LOC: LAB 09:35
PROVIDERS: Internal Medicine Nephrology
DX: N18.3 Chronic kidney disease, stage 3 (moderate) (principal); R31.29 Other microscopic hematuria

== ENCOUNTER → 2019-07-11 | Outpatient (CLI) | payer OTHER ==
[2019-07-11 09:40] LABS: BASO # 0.1 10*3/uL (0.0-0.1); BASO % 1.3 % (0.0-1.0); EOS # 0.2 10*3/uL (0.0-0.4); EOS % 5.1 % (1.0-4.0); HEMATOCRIT 33.6 % (42.0-52.0); HEMOGLOBIN 12.1 g/dl (14.0-18.0); LYMPH % 25.1 % (27.0-41.0); MEAN CELL VOLUME 95.2 fl (80.0-94.0); MEAN CORPUSCULAR HGB 34.3 pg (27.0-31.0); MEAN PLATELET VOLUME 10.9 fl (9.6-12.3); MONO # 0.3 10*3/uL (0.1-1.0); MONO % 7.3 % (3.0-9.0); NEUT # 2.4 10*3/uL (2.3-7.9); NEUT % 60.9 % (47.0-73.0); PLATELET COUNT AUTOMATED 146 10*3/uL (130-400); RED BLOOD COUNT 3.53 10*6/uL (4.50-5.90); RED CELL DISTRI WIDTH 13.4 % (0-14.5)
[2019-07-11 09:53] LABS: ALBUMIN 4.1 gm/dl (3.1-4.5); CREATININE 1.66 mg/dL (0.70-1.30); PHOSPHOROUS 2.9 mg/dL (2.5-4.9); POTASSIUM 4.3 mmol/L (3.5-5.1)
[2019-07-11 13:00] LABS: CLARITY CLEAR (CLEAR); COLOR YELLOW (YELLOW)
[2019-07-11 13:01] LABS: BILIRUBIN NEGATIVE (NEGATIVE); BLOOD NEGATIVE (NEGATIVE); GLUCOSE NEGATIVE (NEGATIVE); KETONE TRACE (NEGATIVE); SPECIFIC GRAVITY 1.015 (1.005-1.030)
[2019-07-11 13:02] LABS: PH 5.5 (5.0-9.0)
[2019-07-11 13:03] LABS: LEUKO ESTERASE NEGATIVE (NEGATIVE); NITRITE NEGATIVE (NEGATIVE); UROBILINOGEN 0.2 E.U./dl (0.2-1.0)
[2019-07-11 13:04] LABS: MUCOUS TRACE; WBC 0-2 wbc/hpf (0-5)
== END | disposition home or self-care (01) ==
LOC: LAB 08:36
PROVIDERS: Internal Medicine Nephrology
DX: N18.3 Chronic kidney disease, stage 3 (moderate) (principal)

== ENCOUNTER → 2019-07-18 | Outpatient (CLI) | payer OTHER ==
[2019-07-18 10:02] LABS: ALBUMIN 4.1 gm/dl (3.1-4.5); CREATININE 1.62 mg/dL (0.70-1.30); POTASSIUM 4.5 mmol/L (3.5-5.1); TOTAL PROTEIN 7.1 gm/dL (6.4-8.2)
[2019-07-18 10:11] LABS: THYROID STIM HORMONE (HS) 0.259 uIU/ml (0.358-4.75)
[2019-07-18 12:04] LABS: HEMATOCRIT 33.6 % (42.0-52.0); HEMOGLOBIN 11.8 g/dl (14.0-18.0); MEAN CELL VOLUME 97.4 fl (80.0-94.0); MEAN CORPUSCULAR HGB 34.2 pg (27.0-31.0); MEAN CORPUSCULAR HGB CONC 35.1 g/dl (33.0-37.0); MEAN PLATELET VOLUME 10.9 fl (9.6-12.3); RED BLOOD COUNT 3.45 10*6/uL (4.50-5.90); RED CELL DISTRI WIDTH 13.5 % (0-14.5); WHITE BLOOD COUNT 4.1 10*3/uL (4.8-10.8)
== END | disposition home or self-care (01) ==
LOC: LAB 08:36
PROVIDERS: Registered Nurse Flight
DX: E11.22 Type 2 diabetes mellitus with diabetic chronic kidney disease (principal); N18.3 Chronic kidney disease, stage 3 (moderate); E03.9 Hypothyroidism, unspecified; E78.5 Hyperlipidemia, unspecified

== ENCOUNTER → 2019-10-06 | Outpatient (CLI) | payer OTHER ==
[2019-10-06 09:23] LABS: HEMATOCRIT 34.3 % (42.0-52.0); MEAN CELL VOLUME 96.1 fl (80.0-94.0); MEAN CORPUSCULAR HGB 34.2 pg (27.0-31.0); MEAN CORPUSCULAR HGB CONC 35.6 g/dl (33.0-37.0); MEAN PLATELET VOLUME 10.1 fl (9.6-12.3); RED BLOOD COUNT 3.57 10*6/uL (4.50-5.90); WHITE BLOOD COUNT 4.2 10*3/uL (4.8-10.8)
[2019-10-06 09:49] LABS: ALBUMIN 4.3 gm/dl (3.1-4.5); POTASSIUM 4.8 mmol/L (3.5-5.1); TOTAL PROTEIN 7.4 gm/dL (6.4-8.2)
[2019-10-06 10:00] LABS: CREATININE 1.64 mg/dL (0.70-1.30); THYROID STIM HORMONE (HS) 0.559 uIU/ml (0.358-4.75)
== END | disposition home or self-care (01) ==
LOC: LAB 08:39
PROVIDERS: Registered Nurse Flight
DX: E11.22 Type 2 diabetes mellitus with diabetic chronic kidney disease (principal); N18.3 Chronic kidney disease, stage 3 (moderate); E03.9 Hypothyroidism, unspecified; E78.5 Hyperlipidemia, unspecified

== ENCOUNTER → 2019-11-09 | Outpatient (CLI) | payer OTHER ==
[2019-11-09 08:43] LABS: BASO % 1.1 % (0.0-1.0); EOS # 0.2 10*3/uL (0.0-0.4); EOS % 4.4 % (1.0-4.0); HEMATOCRIT 33.6 % (42.0-52.0); LYMPH # 0.9 10*3/uL (1.3-4.4); LYMPH % 23.4 % (27.0-41.0); MEAN CELL VOLUME 96.6 fl (80.0-94.0); MEAN CORPUSCULAR HGB 34.2 pg (27.0-31.0); MEAN CORPUSCULAR HGB CONC 35.4 g/dl (33.0-37.0); MEAN PLATELET VOLUME 10.5 fl (9.6-12.3); MONO # 0.3 10*3/uL (0.1-1.0); MONO % 7.6 % (3.0-9.0); NEUT # 2.3 10*3/uL (2.3-7.9); NEUT % 63.2 % (47.0-73.0); PLATELET COUNT AUTOMATED 168 10*3/uL (130-400); RED BLOOD COUNT 3.48 10*6/uL (4.50-5.90); RED CELL DISTRI WIDTH 13.7 % (0-14.5); WHITE BLOOD COUNT 3.7 10*3/uL (4.8-10.8)
[2019-11-09 08:55] LABS: BILIRUBIN NEGATIVE (NEGATIVE); BLOOD NEGATIVE (NEGATIVE); CLARITY CLEAR (CLEAR); COLOR YELLOW (YELLOW); GLUCOSE NEGATIVE (NEGATIVE); KETONE NEGATIVE (NEGATIVE); LEUKO ESTERASE NEGATIVE (NEGATIVE); NITRITE NEGATIVE (NEGATIVE); SPECIFIC GRAVITY 1.015 (1.005-1.030); UROBILINOGEN 0.2 E.U./dl (0.2-1.0)
[2019-11-09 08:56] LABS: EPITHELIAL CELLS 0-2; WBC 0-2 wbc/hpf (0-5)
[2019-11-09 09:01] LABS: ALBUMIN 4.1 gm/dl (3.1-4.5); CREATININE 1.64 mg/dL (0.70-1.30); POTASSIUM 4.8 mmol/L (3.5-5.1)
[2019-11-09 09:33] LABS: FERRITIN 190.2 ng/mL (22.0-322.0); VITAMIN D, 25-HYDROXY 30.5 ng/mL (30-100)
[2019-11-09 09:34] LABS: PTH INTACT 62.3 pg/mL (18.5-88.0)
== END | disposition home or self-care (01) ==
LOC: LAB 07:49
PROVIDERS: Internal Medicine Nephrology
DX: E11.22 Type 2 diabetes mellitus with diabetic chronic kidney disease (principal); N18.3 Chronic kidney disease, stage 3 (moderate); D63.1 Anemia in chronic kidney disease; N25.81 Secondary hyperparathyroidism of renal origin; Z79.899 Other long term (current) drug therapy

== ENCOUNTER → 2020-01-03 | Outpatient (CLI) | payer OTHER ==
[2020-01-03 08:34] LABS: HEMATOCRIT 32.4 % (42.0-52.0); MEAN CORPUSCULAR HGB 33.7 pg (27.0-31.0); MEAN CORPUSCULAR HGB CONC 35.5 g/dl (33.0-37.0); MEAN PLATELET VOLUME 10.3 fl (9.6-12.3); RED BLOOD COUNT 3.41 10*6/uL (4.50-5.90); RED CELL DISTRI WIDTH 13.2 % (0-14.5); WHITE BLOOD COUNT 3.5 10*3/uL (4.8-10.8)
[2020-01-03 09:06] LABS: ALBUMIN 4.2 gm/dl (3.1-4.5); CREATININE 1.57 mg/dL (0.70-1.30); POTASSIUM 4.5 mmol/L (3.5-5.1)
[2020-01-03 09:15] LABS: THYROID STIM HORMONE (HS) 0.201 uIU/ml (0.358-4.75); TOTAL PROTEIN 7.5 gm/dL (6.4-8.2)
== END | disposition home or self-care (01) ==
LOC: LAB 08:00
PROVIDERS: Registered Nurse Flight
DX: E11.22 Type 2 diabetes mellitus with diabetic chronic kidney disease (principal); N18.3 Chronic kidney disease, stage 3 (moderate); E78.5 Hyperlipidemia, unspecified; E03.9 Hypothyroidism, unspecified

== ENCOUNTER 2020-06-10 11:08 | Inpatient (IN) | payer OTHER ==
[~2020-06-10] VITALS: Ht 175.2 cm; Wt 87.7 kg
[2020-06-10 12:00] LABS: HEMATOCRIT 30.9 % (42.0-52.0); LYMPH # 0.4 10*3/uL (1.3-4.4); LYMPH % 9.7 % (27.0-41.0); MEAN CELL VOLUME 90.9 fl (80.0-94.0); MEAN CORPUSCULAR HGB 32.4 pg (27.0-31.0); MEAN CORPUSCULAR HGB CONC 35.6 g/dl (33.0-37.0); MEAN PLATELET VOLUME 10.4 fl (9.6-12.3); MONO # 0.1 10*3/uL (0.1-1.0); MONO % 3.1 % (3.0-9.0); NEUT # 3.6 10*3/uL (2.3-7.9); NEUT % 86.2 % (47.0-73.0); PLATELET COUNT AUTOMATED 156 10*3/uL (130-400); WHITE BLOOD COUNT 4.2 10*3/uL (4.8-10.8)
[2020-06-10 12:14] LABS: ALBUMIN 3.1 gm/dl (3.1-4.5); CREATININE 1.74 mg/dL (0.70-1.30); POTASSIUM 4.2 mmol/L (3.5-5.1); TOTAL PROTEIN 6.9 gm/dL (6.4-8.2)
[2020-06-10 14:35] LABS: BILIRUBIN Negative (Negative); BLOOD 3+ (Negative); CLARITY Clear (Clear); COLOR Yellow (Yellow); GLUCOSE 3+ (Negative); KETONE Negative (Negative); LEUKO ESTERASE Negative (Negative); NITRITE Negative (Negative); PH 5.5 (4.5-8.0); SPECIFIC GRAVITY 1.025 (1.001-1.030)
[2020-06-10 14:47] LABS: EPITHELIAL CELLS 0-2
[2020-06-10 14:48] LABS: BACTERIA 2+
[2020-06-10 15:45] LABS: ABG BASE EXCESS 1.7 mmol/L (-2.0-2.0); ARTERIAL BLOOD GAS PH 7.499 (7.35-7.45)
[2020-06-10 16:54] VITALS: BP 150/74
[2020-06-10 17:30] VITALS: BP 140/80
[2020-06-10] MEDS ORDERED: COREG25 MG PO (19:02)
[2020-06-10] MEDS ORDERED: APRESOLINE25 MG PO (19:05)
[2020-06-10] MEDS ORDERED: LIPITOR40 MG PO (19:06)
[2020-06-10] MEDS ORDERED: GLUCOTROL10 MG PO (19:07)
[2020-06-10] MEDS ORDERED: ISOSORBIDE DINI30 MG PO (19:07)
[2020-06-10] MEDS ORDERED: GLUCOPHAGE500 M1 PO (19:08)
[2020-06-10 20:00] VITALS: BP 139/84
[2020-06-11] VITALS: BP 106/62
[2020-06-11 03:22] LABS: HEMATOCRIT 29.9 % (42.0-52.0); LYMPH # 0.4 10*3/uL (1.3-4.4); LYMPH % 11.7 % (27.0-41.0); MEAN CELL VOLUME 92.6 fl (80.0-94.0); MEAN CORPUSCULAR HGB 31.6 pg (27.0-31.0); MEAN CORPUSCULAR HGB CONC 34.1 g/dl (33.0-37.0); MEAN PLATELET VOLUME 10.6 fl (9.6-12.3); MONO # 0.1 10*3/uL (0.1-1.0); MONO % 2.7 % (3.0-9.0); NEUT # 2.5 10*3/uL (2.3-7.9); NEUT % 84.9 % (47.0-73.0); PLATELET COUNT AUTOMATED 167 10*3/uL (130-400); RED BLOOD COUNT 3.23 10*6/uL (4.50-5.90)
[2020-06-11 03:38] LABS: ALBUMIN 2.7 gm/dl (3.1-4.5); CREATININE 1.54 mg/dL (0.70-1.30); POTASSIUM 4.3 mmol/L (3.5-5.1); TOTAL PROTEIN 6.2 gm/dL (6.4-8.2)
[2020-06-11 03:45] LABS: FREE T4 1.53 ng/dl (0.76-1.46); THYROID STIM HORMONE (HS) 0.073 uIU/ml (0.358-4.75)
[2020-06-11 03:46] LABS: ACT PARTIAL THROMBO TIME 29.9 SECONDS (20.0-32.1); INTERNATIONAL NORM RATIO 1.1 (2.0-3.5)
[2020-06-11 08:00] VITALS: BP 120/72
[2020-06-11 09:02] LABS: VITAMIN D, 25-HYDROXY 25.7 ng/mL (30-100)
[2020-06-11 09:14] LABS: FERRITIN 1864.3 ng/mL (22.0-322.0)
[2020-06-11 12:00] VITALS: BP 97/59
[2020-06-11 16:00] VITALS: BP 103/57
[2020-06-11 20:00] VITALS: BP 118/72
[2020-06-12] VITALS: BP 123/90
[2020-06-12 06:14] LABS: HEMATOCRIT 28.1 % (42.0-52.0); LYMPH # 0.3 10*3/uL (1.3-4.4); LYMPH % 6.3 % (27.0-41.0); MEAN CELL VOLUME 92.1 fl (80.0-94.0); MEAN CORPUSCULAR HGB 32.1 pg (27.0-31.0); MEAN CORPUSCULAR HGB CONC 34.9 g/dl (33.0-37.0); MEAN PLATELET VOLUME 10.6 fl (9.6-12.3); MONO # 0.2 10*3/uL (0.1-1.0); MONO % 3.3 % (3.0-9.0); NEUT # 4.3 10*3/uL (2.3-7.9); NEUT % 89.4 % (47.0-73.0); PLATELET COUNT AUTOMATED 177 10*3/uL (130-400); RED BLOOD COUNT 3.05 10*6/uL (4.50-5.90); RED CELL DISTRI WIDTH 12.8 % (0-14.5); WHITE BLOOD COUNT 4.8 10*3/uL (4.8-10.8)
[2020-06-12 06:20] LABS: ALBUMIN 2.7 gm/dl (3.1-4.5); CREATININE 1.61 mg/dL (0.70-1.30); POTASSIUM 4.2 mmol/L (3.5-5.1); TOTAL PROTEIN 6.1 gm/dL (6.4-8.2)
[2020-06-12 08:00] VITALS: BP 151/79
[2020-06-12 12:00] VITALS: BP 144/62
[2020-06-12 16:00] VITALS: BP 153/85
[2020-06-12 18:00] VITALS: BP 153/81
[2020-06-12 20:00] VITALS: BP 159/82
[2020-06-13] VITALS: BP 152/82
[2020-06-13 06:14] LABS: MEAN CELL VOLUME 92.9 fl (80.0-94.0); MEAN CORPUSCULAR HGB CONC 35.5 g/dl (33.0-37.0); MEAN PLATELET VOLUME 10.5 fl (9.6-12.3); PLATELET COUNT AUTOMATED 170 10*3/uL (130-400); RED BLOOD COUNT 3.12 10*6/uL (4.50-5.90); RED CELL DISTRI WIDTH 12.9 % (0-14.5); WHITE BLOOD COUNT 5.1 10*3/uL (4.8-10.8)
[2020-06-13 06:23] LABS: ALBUMIN 2.6 gm/dl (3.1-4.5); CREATININE 1.5 mg/dL (0.70-1.30); POTASSIUM 4.7 mmol/L (3.5-5.1); TOTAL PROTEIN 5.7 gm/dL (6.4-8.2)
[2020-06-13 07:08] LABS: PLATELET SUFFICIENCY NORMAL (NORMAL); TOTAL CELLS COUNTED 100 #CELLS
[2020-06-13 08:00] VITALS: BP 139/72
[2020-06-13 12:01] VITALS: BP 112/66
[2020-06-13 16:00] VITALS: BP 100/50
[2020-06-14] VITALS: BP 139/73
[2020-06-14 06:28] LABS: HEMATOCRIT 28.3 % (42.0-52.0); MEAN CELL VOLUME 91.6 fl (80.0-94.0); MEAN PLATELET VOLUME 10.6 fl (9.6-12.3); PLATELET COUNT AUTOMATED 203 10*3/uL (130-400); RED BLOOD COUNT 3.09 10*6/uL (4.50-5.90); RED CELL DISTRI WIDTH 13.1 % (0-14.5); WHITE BLOOD COUNT 5.8 10*3/uL (4.8-10.8)
[2020-06-14 06:42] LABS: ALBUMIN 2.7 gm/dl (3.1-4.5); CREATININE 1.5 mg/dL (0.70-1.30); POTASSIUM 4.3 mmol/L (3.5-5.1); TOTAL PROTEIN 5.9 gm/dL (6.4-8.2)
[2020-06-14 07:16] LABS: BURR CELLS FEW; PLATELET SUFFICIENCY NORMAL (NORMAL); TOTAL CELLS COUNTED 100 #CELLS
[2020-06-14 08:00] VITALS: BP 135/72
[2020-06-14 12:00] VITALS: BP 133/64
[2020-06-14 16:00] VITALS: BP 119/75
[2020-06-14 20:00] VITALS: BP 110/56
[2020-06-15] VITALS (7 sets, daily range): BP systolic 107–154; BP diastolic 62–92
[2020-06-15 01:17] LABS: ABG BASE EXCESS 0.1 mmol/L (-2.0-2.0); ARTERIAL BLOOD GAS PH 7.514 (7.35-7.45)
[2020-06-15 06:20] LABS: HEMATOCRIT 35.3 % (42.0-52.0); MEAN CELL VOLUME 92.4 fl (80.0-94.0); MEAN CORPUSCULAR HGB 31.9 pg (27.0-31.0); MEAN CORPUSCULAR HGB CONC 34.6 g/dl (33.0-37.0); MEAN PLATELET VOLUME 10.5 fl (9.6-12.3); NUCLEATED RED BLOOD CELL 0.3 % (0.0-0.0); PLATELET COUNT AUTOMATED 243 10*3/uL (130-400); RED BLOOD COUNT 3.82 10*6/uL (4.50-5.90); RED CELL DISTRI WIDTH 13.2 % (0-14.5); WHITE BLOOD COUNT 10.6 10*3/uL (4.8-10.8)
[2020-06-15 06:35] LABS: CREATININE 1.72 mg/dL (0.70-1.30); POTASSIUM 4.5 mmol/L (3.5-5.1)
[2020-06-15 06:40] LABS: TOTAL PROTEIN 7.2 gm/dL (6.4-8.2)
[2020-06-15 06:52] LABS: PLATELET SUFFICIENCY NORMAL (NORMAL); TOTAL CELLS COUNTED 100 #CELLS; VACUOLATION OF NEUTROPHILS SLIGHT
[2020-06-15 06:53] LABS: BURR CELLS FEW; POLYCHROMASIA SLIGHT; SCHISTOCYTES FEW; SPHEROCYTES FEW
[2020-06-15 10:58] LABS: ABG BASE EXCESS -2.3 mmol/L (-2.0-2.0); ARTERIAL BLOOD GAS PH 7.465 (7.35-7.45)
[2020-06-15 17:13] LABS: ABG BASE EXCESS -3.6 mmol/L (-2.0-2.0); ARTERIAL BLOOD GAS PH 7.455 (7.35-7.45)
[2020-06-15 20:00] LABS: ABG BASE EXCESS -3.5 mmol/L (-2.0-2.0); ARTERIAL BLOOD GAS PH 7.355 (7.35-7.45)
[2020-06-15 23:37] LABS: ABG BASE EXCESS -4.7 mmol/L (-2.0-2.0); ARTERIAL BLOOD GAS PH 7.335 (7.35-7.45)
[2020-06-16] VITALS (29 sets, daily range): BP systolic 75–120; BP diastolic 46–86
[2020-06-16 06:08] LABS: ALBUMIN 1.9 gm/dl (3.1-4.5); CREATININE 1.46 mg/dL (0.70-1.30); POTASSIUM 4.1 mmol/L (3.5-5.1); TOTAL PROTEIN 5.1 gm/dL (6.4-8.2)
[2020-06-16 06:15] LABS: HEMATOCRIT 28.1 % (42.0-52.0); MEAN CORPUSCULAR HGB 32.4 pg (27.0-31.0); MEAN CORPUSCULAR HGB CONC 33.8 g/dl (33.0-37.0); MEAN PLATELET VOLUME 10.5 fl (9.6-12.3); RED BLOOD COUNT 2.93 10*6/uL (4.50-5.90); RED CELL DISTRI WIDTH 13.4 % (0-14.5); WHITE BLOOD COUNT 4.1 10*3/uL (4.8-10.8)
[2020-06-16 06:17] LABS: MEAN CELL VOLUME 95.9 fl (80.0-94.0); PLATELET COUNT AUTOMATED 160 10*3/uL (130-400)
[2020-06-16 06:40] LABS: BURR CELLS MODERATE; PLATELET SUFFICIENCY NORMAL (NORMAL); TOTAL CELLS COUNTED 100 #CELLS; TOXIC GRANULATION MODERATE; VACUOLATION OF NEUTROPHILS SLIGHT
[2020-06-16 06:41] LABS: SCHISTOCYTES FEW; SPHEROCYTES FEW
[2020-06-16 07:05] LABS: BILIRUBIN Negative (Negative); BLOOD 1+ (Negative); CLARITY Cloudy (Clear); COLOR Yellow (Yellow); GLUCOSE Negative (Negative); KETONE Negative (Negative); LEUKO ESTERASE Negative (Negative); NITRITE Negative (Negative); SPECIFIC GRAVITY 1.015 (1.001-1.030); UROBILINOGEN 0.2 E.U./dl (0.0-1.0)
[2020-06-16 07:56] LABS: BACTERIA 2+; MUCOUS 1+
[2020-06-16 08:38] LABS: ABG BASE EXCESS -5.2 mmol/L (-2.0-2.0); ARTERIAL BLOOD GAS PH 7.301 (7.35-7.45)
[2020-06-16 16:33] LABS: ABG BASE EXCESS -6.4 mmol/L (-2.0-2.0); ARTERIAL BLOOD GAS PH 7.276 (7.35-7.45)
[2020-06-17] VITALS (94 sets, daily range): BP systolic 83–141; BP diastolic 51–82
[2020-06-17 00:40] LABS: ARTERIAL BLOOD GAS PH 7.246 (7.35-7.45)
[2020-06-17 00:41] LABS: ABG BASE EXCESS -6.2 mmol/L (-2.0-2.0)
[2020-06-17 05:27] LABS: ALBUMIN 1.6 gm/dl (3.1-4.5); CREATININE 1.91 mg/dL (0.70-1.30); POTASSIUM 4.8 mmol/L (3.5-5.1); TOTAL PROTEIN 5.4 gm/dL (6.4-8.2)
[2020-06-17 06:13] LABS: LDH 215 U/L (87-241)
[2020-06-17 06:28] LABS: MEAN CELL VOLUME 97.5 fl (80.0-94.0); MEAN CORPUSCULAR HGB 31.8 pg (27.0-31.0); MEAN CORPUSCULAR HGB CONC 32.6 g/dl (33.0-37.0); MEAN PLATELET VOLUME 11.4 fl (9.6-12.3); PLATELET COUNT AUTOMATED 172 10*3/uL (130-400); RED BLOOD COUNT 2.77 10*6/uL (4.50-5.90); RED CELL DISTRI WIDTH 13.6 % (0-14.5); WHITE BLOOD COUNT 6.6 10*3/uL (4.8-10.8)
[2020-06-17 06:30] LABS: CPK 454 U/L (39-308)
[2020-06-17 07:04] LABS: TOTAL CELLS COUNTED 100 #CELLS
[2020-06-17 07:05] LABS: PLATELET SUFFICIENCY NORMAL (NORMAL); POLYCHROMASIA SLIGHT; SPHEROCYTES FEW; TOXIC GRANULATION MARKED; VACUOLATION OF NEUTROPHILS SLIGHT
[2020-06-17 07:06] LABS: BURR CELLS MODERATE; SCHISTOCYTES FEW
[2020-06-17 08:16] LABS: ARTERIAL BLOOD GAS PH 7.251 (7.35-7.45)
[2020-06-17 08:20] LABS: ABG BASE EXCESS -6.2 mmol/L (-2.0-2.0)
[2020-06-17 14:59] LABS: ABG BASE EXCESS -5.3 mmol/L (-2.0-2.0); ARTERIAL BLOOD GAS PH 7.304 (7.35-7.45)
[2020-06-17 19:53] LABS: ABG BASE EXCESS -6.1 mmol/L (-2.0-2.0); ARTERIAL BLOOD GAS PH 7.27 (7.35-7.45)
[2020-06-17 22:36] LABS: ABG BASE EXCESS -6.4 mmol/L (-2.0-2.0); ARTERIAL BLOOD GAS PH 7.257 (7.35-7.45)
[2020-06-18] VITALS (91 sets, daily range): BP systolic 88–145; BP diastolic 52–109
[2020-06-18 03:27] LABS: ABG BASE EXCESS -6.4 mmol/L (-2.0-2.0); ARTERIAL BLOOD GAS PH 7.282 (7.35-7.45)
[2020-06-18 06:02] LABS: HEMATOCRIT 24.1 % (42.0-52.0); MEAN CELL VOLUME 95.6 fl (80.0-94.0); MEAN CORPUSCULAR HGB 31.7 pg (27.0-31.0); MEAN CORPUSCULAR HGB CONC 33.2 g/dl (33.0-37.0); MEAN PLATELET VOLUME 11.3 fl (9.6-12.3); PLATELET COUNT AUTOMATED 160 10*3/uL (130-400); RED BLOOD COUNT 2.52 10*6/uL (4.50-5.90); RED CELL DISTRI WIDTH 13.5 % (0-14.5); WHITE BLOOD COUNT 5.6 10*3/uL (4.8-10.8)
[2020-06-18 06:28] LABS: ALBUMIN 1.4 gm/dl (3.1-4.5); CREATININE 2.27 mg/dL (0.70-1.30); POTASSIUM 4.7 mmol/L (3.5-5.1); TOTAL PROTEIN 5.3 gm/dL (6.4-8.2)
[2020-06-18 07:16] LABS: TOTAL CELLS COUNTED 100 #CELLS
[2020-06-18 07:17] LABS: PLATELET SUFFICIENCY NORMAL (NORMAL); POLYCHROMASIA SLIGHT
[2020-06-18 08:33] LABS: ARTERIAL BLOOD GAS PH 7.292 (7.35-7.45)
[2020-06-18 08:59] LABS: ABG BASE EXCESS -5.9 mmol/L (-2.0-2.0)
[2020-06-18 12:41] LABS: ABG BASE EXCESS -5.7 mmol/L (-2.0-2.0); ARTERIAL BLOOD GAS PH 7.309 (7.35-7.45)
[2020-06-18 18:48] LABS: BILIRUBIN Negative (Negative); BLOOD 2+ (Negative); CLARITY Turbid (Clear); COLOR Yellow (Yellow); GLUCOSE Negative (Negative); KETONE Negative (Negative); LEUKO ESTERASE Negative (Negative); NITRITE Negative (Negative)
[2020-06-18 18:51] LABS: URINE CHLORIDE, RANDOM < 10 mmol/L
[2020-06-18 19:33] LABS: RBC 16-20 rbc/hpf (0-2)
[2020-06-18 19:34] LABS: BACTERIA 4+
[2020-06-18 19:51] LABS: ABG BASE EXCESS -5.7 mmol/L (-2.0-2.0); ARTERIAL BLOOD GAS PH 7.294 (7.35-7.45)
[2020-06-19] VITALS (37 sets, daily range): BP systolic 95–140; BP diastolic 53–80
[2020-06-19 01:36] LABS: ARTERIAL BLOOD GAS PH 7.286 (7.35-7.45)
[2020-06-19 01:37] LABS: ABG BASE EXCESS -5.5 mmol/L (-2.0-2.0)
[2020-06-19 06:14] LABS: ALBUMIN 1.5 gm/dl (3.1-4.5); CREATININE 2.7 mg/dL (0.70-1.30); POTASSIUM 4.7 mmol/L (3.5-5.1); TOTAL PROTEIN 5.6 gm/dL (6.4-8.2)
[2020-06-19 06:25] LABS: HEMATOCRIT 23.7 % (42.0-52.0); MEAN CELL VOLUME 95.2 fl (80.0-94.0); MEAN CORPUSCULAR HGB 32.5 pg (27.0-31.0); MEAN CORPUSCULAR HGB CONC 34.2 g/dl (33.0-37.0); MEAN PLATELET VOLUME 11.5 fl (9.6-12.3); PLATELET COUNT AUTOMATED 149 10*3/uL (130-400); RED BLOOD COUNT 2.49 10*6/uL (4.50-5.90); WHITE BLOOD COUNT 5.8 10*3/uL (4.8-10.8)
[2020-06-19 06:49] LABS: BURR CELLS MODERATE; PLATELET SUFFICIENCY NORMAL (NORMAL); ROULEAUX SLIGHT; TOTAL CELLS COUNTED 100 #CELLS; TOXIC GRANULATION SLIGHT
[2020-06-19 06:50] LABS: POLYCHROMASIA SLIGHT
[2020-06-19 08:21] LABS: ABG BASE EXCESS -4.9 mmol/L (-2.0-2.0); ARTERIAL BLOOD GAS PH 7.3 (7.35-7.45)
[2020-06-19 13:50] LABS: ARTERIAL BLOOD GAS PH 7.372 (7.35-7.45)
[2020-06-19 13:51] LABS: ABG BASE EXCESS -5.5 mmol/L (-2.0-2.0)
[2020-06-19 14:36] LABS: ACT PARTIAL THROMBO TIME 30.5 SECONDS (20.0-32.1)
[2020-06-20] VITALS (21 sets, daily range): BP systolic 90–133; BP diastolic 53–75
[2020-06-20 05:37] LABS: ALBUMIN 1.6 gm/dl (3.1-4.5); CREATININE 2.78 mg/dL (0.70-1.30); POTASSIUM 4.9 mmol/L (3.5-5.1); TOTAL PROTEIN 5.7 gm/dL (6.4-8.2)
[2020-06-20 06:12] LABS: HEMATOCRIT 24.1 % (42.0-52.0); MEAN CELL VOLUME 96.4 fl (80.0-94.0); MEAN CORPUSCULAR HGB 32.4 pg (27.0-31.0); MEAN CORPUSCULAR HGB CONC 33.6 g/dl (33.0-37.0); MEAN PLATELET VOLUME 11.8 fl (9.6-12.3); NUCLEATED RED BLOOD CELL 0.2 10*3/uL (0.0-0.0); PLATELET COUNT AUTOMATED 141 10*3/uL (130-400); RED CELL DISTRI WIDTH 14.3 % (0-14.5); WHITE BLOOD COUNT 6.4 10*3/uL (4.8-10.8)
[2020-06-20 06:23] LABS: ACT PARTIAL THROMBO TIME 72.6 SECONDS (20.0-32.1)
[2020-06-20 06:42] LABS: TOTAL CELLS COUNTED 100 #CELLS; TOXIC GRANULATION SLIGHT
[2020-06-20 06:43] LABS: BURR CELLS MODERATE; PLATELET SUFFICIENCY NORMAL (NORMAL); POLYCHROMASIA SLIGHT; ROULEAUX SLIGHT
[2020-06-20 08:21] LABS: ARTERIAL BLOOD GAS PH 7.38 (7.35-7.45)
[2020-06-21] VITALS (62 sets, daily range): BP systolic 91–136; BP diastolic 49–96
[2020-06-21 06:06] LABS: ALBUMIN 1.5 gm/dl (3.1-4.5); CREATININE 4.47 mg/dL (0.70-1.30); TOTAL PROTEIN 5.5 gm/dL (6.4-8.2)
[2020-06-21 06:48] LABS: HEMATOCRIT 23.5 % (42.0-52.0); MEAN CORPUSCULAR HGB 31.6 pg (27.0-31.0); MEAN CORPUSCULAR HGB CONC 31.1 g/dl (33.0-37.0); MEAN PLATELET VOLUME 12.8 fl (9.6-12.3); NUCLEATED RED BLOOD CELL 0.9 10*3/uL (0.0-0.0); NUCLEATED RED BLOOD CELL 10.3 % (0.0-0.0); PLATELET COUNT AUTOMATED 135 10*3/uL (130-400); RED BLOOD COUNT 2.31 10*6/uL (4.50-5.90); RED CELL DISTRI WIDTH 15.1 % (0-14.5); WHITE BLOOD COUNT 8.4 10*3/uL (4.8-10.8)
[2020-06-21 06:51] LABS: MEAN CELL VOLUME 101.7 fl (80.0-94.0)
[2020-06-21 07:46] LABS: ABG BASE EXCESS -7.5 mmol/L (-2.0-2.0); ARTERIAL BLOOD GAS PH 7.251 (7.35-7.45)
[2020-06-21 07:59] LABS: TOTAL CELLS COUNTED 100 #CELLS; TOXIC GRANULATION SLIGHT
[2020-06-21 08:00] LABS: BURR CELLS FEW; PLATELET SUFFICIENCY NORMAL (NORMAL); POLYCHROMASIA SLIGHT; ROULEAUX SLIGHT; SPHEROCYTES FEW
[2020-06-21 08:01] LABS: ACT PARTIAL THROMBO TIME 47.2 SECONDS (20.0-32.1)
== END 2020-06-21 15:06 | disposition short-term general hospital (02) | DRG 870 ==
LOC: ED 11:08 → EDHOLD 13:27 → 4E 13:27 → EDHOLD 13:44 → 4E 15:07 → ICCU 06-15 16:11
PROVIDERS: Emergency Medicine; Family Medicine; Hospitalist; Internal Medicine; Internal Medicine Critical Care Medicine; Nurse Practitioner; Student in an Organized Health Care Education/Training Program; ADMIT Student in an Organized Health Care Education/Training Program; ATTEND Student in an Organized Health Care Education/Training Program
PROC: XW033E5 Introduction of Remdesivir Anti-infective into Peripheral Vein, Percutaneous Approach, New Technology Group 5 (ICD-10-PCS; 2020-06-11)
PROC: 5A1955Z Respiratory Ventilation, Greater than 96 Consecutive Hours (ICD-10-PCS; principal; 2020-06-15)
PROC: 0BH17EZ Insertion of Endotracheal Airway into Trachea, Via Natural or Artificial Opening (ICD-10-PCS; 2020-06-15)
PROC: 02HV33Z Insertion of Infusion Device into Superior Vena Cava, Percutaneous Approach (ICD-10-PCS; 2020-06-15)
PROC: B548ZZA Ultrasonography of Superior Vena Cava, Guidance (ICD-10-PCS; 2020-06-15)
PROC: 03HY32Z Insertion of Monitoring Device into Upper Artery, Percutaneous Approach (ICD-10-PCS; 2020-06-17)
PROC: 4A133B1 Monitoring of Arterial Pressure, Peripheral, Percutaneous Approach (ICD-10-PCS; 2020-06-17)
PROC: 4A133J1 Monitoring of Arterial Pulse, Peripheral, Percutaneous Approach (ICD-10-PCS; 2020-06-17)
PROC: 06HM33Z Insertion of Infusion Device into Right Femoral Vein, Percutaneous Approach (ICD-10-PCS; 2020-06-21)
DX: A41.9 Sepsis, unspecified organism (principal); U07.1 COVID-19; N17.0 Acute kidney failure with tubular necrosis; J80 Acute respiratory distress syndrome; J12.82 Pneumonia due to coronavirus disease 2019; I21.A1 Myocardial infarction type 2; J15.211 Pneumonia due to Methicillin susceptible Staphylococcus aureus; R65.21 Severe sepsis with septic shock; I13.0 Hypertensive heart and chronic kidney disease with heart failure and stage 1 through stage 4 chronic kidney disease, or unspecified chronic kidney disease; E87.1 Hypo-osmolality and hyponatremia; I50.22 Chronic systolic (congestive) heart failure; E46 Unspecified protein-calorie malnutrition; D68.59 Other primary thrombophilia; E11.65 Type 2 diabetes mellitus with hyperglycemia; N18.30 Chronic kidney disease, stage 3 unspecified; E03.9 Hypothyroidism, unspecified; L40.9 Psoriasis, unspecified; E78.5 Hyperlipidemia, unspecified; E11.22 Type 2 diabetes mellitus with diabetic chronic kidney disease; D64.9 Anemia, unspecified; E86.0 Dehydration; I25.10 Atherosclerotic heart disease of native coronary artery without angina pectoris; M19.90 Unspecified osteoarthritis, unspecified site; E86.9 Volume depletion, unspecified; I25.5 Ischemic cardiomyopathy; E78.1 Pure hyperglyceridemia; E83.41 Hypermagnesemia; R53.81 Other malaise; I48.0 Paroxysmal atrial fibrillation; E87.5 Hyperkalemia; Z82.49 Family history of ischemic heart disease and other diseases of the circulatory system; Z83.3 Family history of diabetes mellitus; Z80.0 Family history of malignant neoplasm of digestive organs; I25.2 Old myocardial infarction; Z95.5 Presence of coronary angioplasty implant and graft; Z87.891 Personal history of nicotine dependence; Z88.8 Allergy status to other drugs, medicaments and biological substances; Z79.82 Long term (current) use of aspirin; Z79.899 Other long term (current) drug therapy; Z68.26 Body mass index [BMI] 26.0-26.9, adult